=== PATIENT | male | born 1945 | race Caucasian/White ===

== ENCOUNTER 2016-08-04 23:18 | Emergency (ER) | payer MEDICARE ==
--- NOTE | 2016-08-04 23:38 | ERPHSYRPT ---
- History of Present Illness Time Seen by Provider: 08/04/16 23:32 Source: patient Exam Limitations: no limitations Patient Subjective Stated Complaint: fell out of bed earlier this morning - states that the skin tear on the left upper arm continues to bleed, after being seen at physical therapy - hx coumadin therapy Triage Nursing Assessment: ambulatory to treatment area - steady gait - moves all extremities with equal strength. alert/oriented - pleasant affect. skin pwd - with vertical skin tear 2inches in length with slow oozing. resps easy at reset - wears oxygen per movement et demonstrates exertion Physician History: Pt. fell out of bed at 6AM resulting in 2-3 cm lac to L upper arm. Pt. did not seek medical attention at that time, but noted more bleeding from area tonight after PT before coming to ED. Denies any other injuries. Timing/Duration: today Severity: mild Location: other (L Upper Arm) Associated Symptoms: denies symptoms Allergies/Adverse Reactions: Penicillins Allergy (Verified 08/04/16 23:27) Home Medications: Warfarin Sodium 2.5 mg PO WEEKLY 08/04/16 [History] Warfarin Sodium [Coumadin] 5 mg PO WEEKLY 08/04/16 [History] Hx Tetanus, Diphtheria Vaccination/Date Given: Yes Hx Influenza Vaccination/Date Given: Yes Hx Pneumococcal Vaccination/Date Given: Yes Immunizations Up to Date: Yes - Review of Systems Constitutional: No Fever, No Chills Eyes: No Symptoms Ears, Nose, & Throat: No Symptoms Respiratory: No Cough, No Dyspnea Cardiac: No Chest Pain, No Edema, No Syncope Abdominal/Gastrointestinal: No Abdominal Pain, No Nausea, No Vomiting, No Diarrhea Genitourinary Symptoms: No Dysuria Musculoskeletal: No Back Pain, No Neck Pain Skin: Other (Superficial lac to L upper arm), No Rash Neurological: No Dizziness, No Focal Weakness, No Sensory Changes Psychological: No Symptoms Endocrine: No Symptoms All Other Systems: Reviewed and Negative - Past Medical History Pertinent Past Medical History: Yes Cardiac History: Arrhythmia, High Cholesterol, Hypertension, Myocardial Infarction ([place]) Respiratory History: CHF, COPD Endocrine Medical History: Diabetes Type II - Past Surgical History Past Surgical History: Yes Cardiac: Cardiac Catheterization, Cardiac Stent - Social History Smoking Status: Never smoker Exposure to second hand smoke: No Drug Use: none Patient Lives Alone: No - Nursing Vital Signs Nursing Vital Signs: Initial Vital Signs Temperature 97.9 F Temperature Source Oral Pulse Rate 56 Respiratory Rate 16 Blood Pressure [Right Arm] 126/61 Pain Intensity 0 - Physical Exam General Appearance: no apparent distress, alert Eye Exam: PERRL/EOMI, eyes nml inspection Ears, Nose, Throat Exam: normal ENT inspection, pharynx normal, moist mucous membranes Neck Exam: normal inspection, non-tender, supple, full range of motion Respiratory Exam: normal breath sounds, lungs clear, No respiratory distress Cardiovascular Exam: regular rate/rhythm, normal heart sounds Gastrointestinal/Abdomen Exam: soft, mass, No tenderness Back Exam: normal inspection, normal range of motion, No CVA tenderness, No vertebral tenderness Extremity Exam: normal inspection, normal range of motion Neurologic Exam: alert, oriented x 3, cooperative, normal mood/affect, sensation nml, No motor deficits Skin Exam: normal color, warm, dry, other (Superficial lac 2cm to L upper arm area.) SpO2 Interpretation: normal SpO2: 96 Oxygen Delivery: Room Air - Course Nursing assessment & vital signs reviewed: Yes - Progress Progress: improved Progress Note: Surgicel/pressure dressing placed on L upper arm with good control of bleeding. 08/04/16 23:40 Counseled pt/family regarding: diagnosis - Departure Time of Disposition: 23:41 Departure Disposition: Home Clinical Impression: Laceration of right upper arm Condition: Stable Critical Care Time: No Instructions: Care for a Laceration Prior to Repair Additional Instructions: Keep pressure dressing on wound for 1-2 days Return for worse bleeding, swelling, redness, pus from area or any problems.
[2016-08-05 00:12] VITALS: BP 108/70; PULSE 68; O2SAT 92
== END 2016-08-05 00:10 | disposition home or self-care (01) ==
LOC: ED 23:18
DX: S41.112A Laceration without foreign body of left upper arm, initial encounter (principal); W06.XXXA Fall from bed, initial encounter; E78.00 Pure hypercholesterolemia, unspecified; I10 Essential (primary) hypertension; I25.2 Old myocardial infarction; J44.9 Chronic obstructive pulmonary disease, unspecified; E11.9 Type 2 diabetes mellitus without complications; I50.9 Heart failure, unspecified; Z98.61 Coronary angioplasty status; Z79.01 Long term (current) use of anticoagulants
CPT/HCPCS: 99283

== ENCOUNTER 2018-01-11 09:59 | Emergency (ER) | payer MEDICARE ==
--- NOTE | 2018-01-11 10:44 | ERPHSYRPT ---
- History of Present Illness Time Seen by Provider: 01/11/18 10:25 Source: patient Exam Limitations: no limitations Patient Subjective Stated Complaint: SOB and congestin tofay Triage Nursing Assessment: alert and oriented. came from cardiac rehab with c/ o decreased O2 sat in the 70s. has had congestion and cough. productive. + SOB denies CP denies swelling or fever Physician History: 72 y/o white male with h/o copd, chf, mi, cardiac stents, pacemaker in place on 2 liters nc at home when resting and 4 liters nc when out ambulating, presents with worsening soa over a couple of weeks. pt denies cp, denies abd pain but does states he doesnt feel bad but does think he is working to breathe. Timing/Duration: week(s) (a couple ) Activities at Onset: activity Severity of Dyspnea-Max: mild Severity of Dyspnea-Current: mild Possible Cause: occasional episodes Modifying Factors: Improves With: exertion, oxygen, rest Associated Symptoms: intermittent, No chest pain/discomfort, No loss of appetite , No hemoptysis, No lightheadedness Allergies/Adverse Reactions: Penicillins Allergy (Verified 08/04/16 23:27) Home Medications: Warfarin Sodium 2.5 mg PO WEEKLY 08/04/16 [History] Warfarin Sodium [Coumadin] 5 mg PO WEEKLY 08/04/16 [History] Hx Tetanus, Diphtheria Vaccination/Date Given: Yes Hx Influenza Vaccination/Date Given: Yes Hx Pneumococcal Vaccination/Date Given: Yes - Review of Systems Constitutional: No Symptoms Eyes: No Symptoms Ears, Nose, & Throat: No Symptoms Respiratory: Dyspnea, Wheezing, No Stridor Cardiac: No Symptoms, No Chest Pain, No Palpitations, No Syncope Abdominal/Gastrointestinal: No Symptoms, No Abdominal Pain, No Nausea, No Vomiting Genitourinary Symptoms: No Symptoms, No Dysuria, No Frequency, No Hematuria Musculoskeletal: No Symptoms Skin: No Symptoms Neurological: No Symptoms Psychological: No Symptoms Endocrine: No Symptoms Hematologic/Lymphatic: No Symptoms Immunological/Allergic: No Symptoms - Past Medical History Pertinent Past Medical History: Yes Neurological History: No Pertinent History ENT History: No Pertinent History Cardiac History: Arrhythmia, High Cholesterol, Hypertension, Myocardial Infarction ([place]) Respiratory History: CHF, COPD Endocrine Medical History: Diabetes Type II Musculoskeletal History: No Pertinent History GI Medical History: No Pertinent History History: No Pertinent History Psycho-Social History: No Pertinent History Male Reproductive Disorders: No Pertinent History - Past Surgical History Past Surgical History: Yes Cardiac: Cardiac Catheterization, Cardiac Stent Genitourinary: No Pertinent History Musculoskeletal: No Pertinent History Male Surgical History: No Pertinent History - Social History Smoking Status: Never smoker Exposure to second hand smoke: No Drug Use: none Patient Lives Alone: No - Nursing Vital Signs Nursing Vital Signs: Initial Vital Signs Temperature 98 F 01/11/18 10:07 Pulse Rate 66 01/11/18 10:07 Respiratory Rate 20 01/11/18 10:07 Blood Pressure 143/84 01/11/18 10:07 O2 Sat by Pulse Oximetry 95 01/11/18 10:07 Pain Scale Pain Intensity 0 - Physical Exam General Appearance: no apparent distress, alert, anxiety (mild) Eye Exam: PERRL/EOMI Ears, Nose, Throat Exam: hearing grossly normal Neck Exam: normal inspection, non-tender, supple, full range of motion Respiratory Exam: airway intact, wheezing (mild intermittent exp wheez), No chest tenderness, No respiratory distress, No accessory muscle use, No rhonchi, No stridor Cardiovascular/Chest Exam: normal heart sounds, regular rate/rhythm, normal peripheral pulses Abdominal/Gastrointestinal Exam: soft, normal bowel sounds, No tenderness, No guarding, No rebound Rectal Exam: not done Extremity Exam: non-tender, normal range of motion, normal inspection, normal capillary refill, swelling (mild bilat pedal and ankle edema) Neurologic Exam: alert, oriented x 3, cooperative, precision grinder II-XII nml as tested, normal mood/affect Skin Exam: normal color, warm, dry Lymphatic Exam: No adenopathy SpO2 Interpretation: normal SpO2: 95 Oxygen Delivery: Nasal Cannula - Course Nursing assessment & vital signs reviewed: Yes EKG Interpreted by Me: RATE (55), Other (ventricular pacemaker; no acute ischemic changes. ) Ordered Tests: Active Orders 24 hr Category Date Time Status Mult Au Matic Operator STAT Care 01/11/18 10:47 Active EKG-ER Only STAT Care 01/11/18 10:46 Active IV Insertion STAT Care 01/11/18 10:46 Active CHEST 1 VIEW (PORTABLE) Stat Exams 01/11/18 10:47 Completed CBC W DIFF Stat Lab 01/11/18 11:40 Completed CMP Stat Lab 01/11/18 11:40 Completed NT PRO BNP Stat Lab 01/11/18 11:40 Completed PROTIME WITH INR Stat Lab 01/11/18 11:40 Completed TROPONIN Q3H Lab 01/11/18 12:45 Completed TROPONIN Q3H Lab 01/11/18 15:45 Ordered TROPONIN Q3H Lab 01/11/18 18:45 Ordered TROPONIN Q3H Lab 01/11/18 21:45 Ordered Peak Expiratory Flow Rate ONCE RT 01/11/18 11:13 Active Respiratory Nebulizer STAT RT 01/11/18 11:06 Completed Respiratory Therapy Assessment DAILY RT 01/11/18 11:14 Active Medication Summary Discontinued Medications Generic Name Dose Route Start Last Admin Trade Name Freq PRN Reason Stop Dose Admin Albuterol/Ipratropium 3 ml 01/11/18 11:04 01/11/18 11:07 Duoneb 0.5-3 Mg/3 Ml Neb IH 01/11/18 11:05 3 ml STAT ONE Administration Albuterol/Ipratropium Confirm 01/11/18 11:07 Duoneb 0.5-3 Mg/3 Ml Neb Administered 01/11/18 11:08 Dose 3 ml IH .STK-MED ONE Furosemide 40 mg 01/11/18 11:29 01/11/18 11:33 Lasix 40 Mg/4 Ml IV 01/11/18 11:30 40 mg STAT ONE Administration Furosemide Confirm 01/11/18 11:32 Lasix 40 Mg/4 Ml Administered 01/11/18 11:33 Dose 40 mg .ROUTE .STK-MED ONE Methylprednisolone Sodium Succinate 125 mg 01/11/18 10:46 01/11/18 11:06 Solu-Medrol 125 Mg IV 01/11/18 10:47 125 mg STAT ONE Administration Methylprednisolone Sodium Succinate Confirm 01/11/18 11:06 Solu-Medrol 125 Mg Administered 01/11/18 11:07 Dose 125 mg .ROUTE .STK-MED ONE Lab/Rad Data: Laboratory Result Diagrams 01/11/18 11:40 01/11/18 11:40 Laboratory Results 01/11/18 01/11/18 01/11/18 Range/Units 12:45 11:40 11:40 WBC (4.0-10.5) K/mm3 RBC (4.1-5.6) M/mm3 Hgb (12.5-18.0) gm/dl Hct (42-50) % MCV (78-100) fl MCH (26-32) pg MCHC (32-36) g/dl RDW (11.5-14.0) % Plt Count (150-450) K/mm3 MPV (6-9.5) fl Gran % (36.0-66.0) % Eos # (Auto) (0-0.5) Absolute Lymphs (auto) (1.0-4.6) Absolute Monos (auto) (0.0-1.3) Lymphocytes % (24.0-44.0) % Monocytes % (0.0-12.0) % Eosinophils % (0.00-5.0) % Basophils % (0.0-0.4) % Absolute Granulocytes (1.4-6.9) Basophils # (0-0.4) PT 25.9 H (8.83-12.87) SECONDS INR 2.21 (0.8-3.0) Sodium 143 (137-145) mmol/L Potassium 4.5 (3.5-5.1) mmol/L Chloride 103 (98-107) mmol/L Carbon Dioxide 29 (22-30) mmol/L Anion Gap 15.4 H (5-15) MEQ/L BUN 18 (9-20) mg/dL Creatinine 0.81 (0.66-1.25) mg/dL Estimated GFR > 60.0 ML/MIN Glucose 97 (74-106) mg/dL Calcium 9.7 (8.4-10.2) mg/dL Total Bilirubin 1.30 (0.2-1.3) mg/dL AST 17 (17-59) U/L ALT 15 (0-50) U/L Alkaline Phosphatase 113 (38-126) U/L Troponin I < 0.012 (0.000-0.034) ng/mL NT-Pro-B Natriuret Pep 1260 H (0-900) pg/mL Serum Total Protein 7.9 (6.3-8.2) g/dL Albumin 4.5 (3.5-5.0) g/dL 01/11/18 Range/Units 11:40 WBC 6.3 (4.0-10.5) K/mm3 RBC 4.39 (4.1-5.6) M/mm3 Hgb 12.1 L (12.5-18.0) gm/dl Hct 39.4 L (42-50) % MCV 89.7 (78-100) fl MCH 27.5 (26-32) pg MCHC 30.7 L (32-36) g/dl RDW 15.2 H (11.5-14.0) % Plt Count 110 L (150-450) K/mm3 MPV 11.0 H (6-9.5) fl Gran % 67.1 H (36.0-66.0) % Eos # (Auto) 0.15 (0-0.5) Absolute Lymphs (auto) 0.99 L (1.0-4.6) Absolute Monos (auto) 0.88 (0.0-1.3) Lymphocytes % 15.8 L (24.0-44.0) % Monocytes % 14.1 H (0.0-12.0) % Eosinophils % 2.4 (0.00-5.0) % Basophils % 0.6 (0.0-0.4) % Absolute Granulocytes 4.19 (1.4-6.9) Basophils # 0.04 (0-0.4) PT (8.83-12.87) SECONDS INR (0.8-3.0) Sodium (137-145) mmol/L Potassium (3.5-5.1) mmol/L Chloride (98-107) mmol/L Carbon Dioxide (22-30) mmol/L Anion Gap (5-15) MEQ/L BUN (9-20) mg/dL Creatinine (0.66-1.25) mg/dL Estimated GFR ML/MIN Glucose (74-106) mg/dL Calcium (8.4-10.2) mg/dL Total Bilirubin (0.2-1.3) mg/dL AST (17-59) U/L ALT (0-50) U/L Alkaline Phosphatase (38-126) U/L Troponin I (0.000-0.034) ng/mL NT-Pro-B Natriuret Pep (0-900) pg/mL Serum Total Protein (6.3-8.2) g/dL Albumin (3.5-5.0) g/dL - Progress Progress: improved, re-examined Air Movement: good Progress Note: 01/11/18 12:28 pt states he is feeling much better. he states he has lasix and potassium. he only takes those when he thinks he needs them and he has not been taking them. 01/11/18 13:22 pt doing well. 01/11/18 13:23 cxr-increase fluid. no definite infiltrate but cannot r/o Blood Culture(s) Obtained: No Antibiotics given: No Counseled pt/family regarding: lab results, diagnosis, need for follow-up, rad results - Departure Time of Disposition: 13:23 Departure Disposition: Home Clinical Impression: CHF exacerbation Condition: Stable Critical Care Time: No Referrals: ALONDRA HERNANDEZ [Primary Care Provider] - Instructions: Heart Failure Additional Instructions: take your medications as prescribed. follow up with primary doctor for further management.
[2018-01-11] MEDS ORDERED: solu-MEDROL 125 MG IV ONE (10:46)
[2018-01-11] MEDS ORDERED: DUONEB 0.5-3 MG/3 ml Neb IH ONE ×2 (11:04→11:07)
[2018-01-11] MEDS ORDERED: solu-MEDROL 125 MG ONE (11:06)
--- NOTE | 2018-01-11 11:16 | XRAY ---
Indication: Short of breath. Comparison: September 19, 2016. Portable chest demonstrates new mild interstitial edema and small bibasilar effusions, right greater than left. Heart is borderline enlarged again with left-sided single lead pacemaker. 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 Bony thorax intact again with mild degenerative changes. Impression: 1. Borderline cardiomegaly with new small bibasilar effusions and interstitial edema. Rule out early/mild cardiac decompensation. Superimposed pneumonia not completely excluded. 2. 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
[2018-01-11] MEDS ORDERED: Lasix 40 MG/4 ML IV ONE (11:29)
[2018-01-11] MEDS ORDERED: Lasix 40 MG/4 ML ONE (11:32)
[2018-01-11 11:46] LABS: BASOPHIL % 0.6 % (0.0-0.4); Basophil (Absolute #) 0.04 (0-0.4); Eosinophil % 2.4 % (0.00-5.0); Eosinophil (Absolute #) 0.15 (0-0.5); Granulocyte Absolute (ANC) 4.19 (1.4-6.9); Granulocytes % 67.1 % (36.0-66.0); Hematocrit 39.4 % (42-50); Hemoglobin 12.1 gm/dl (12.5-18.0); Lymphocyte (Absolute #) 0.99 (1.0-4.6); Lymphocytes % 15.8 % (24.0-44.0); Mean Cell Volume 89.7 fl (78-100); Mean Corpuscular Hemoglobin 27.5 pg (26-32); Mean Corpuscular Hgb Concent. 30.7 g/dl (32-36); Monocyte (Absolute #) 0.88 (0.0-1.3); Monocytes % 14.1 % (0.0-12.0); Platelet Count 110 K/mm3 (150-450); Red Blood Count 4.39 M/mm3 (4.1-5.6); Red Cell Distribution Width 15.2 % (11.5-14.0); White Blood Count 6.3 K/mm3 (4.0-10.5)
[2018-01-11 12:19] LABS: INR 2.21 (0.8-3.0)
[2018-01-11 12:33] LABS: ALBUMIN 4.5 g/dL (3.5-5.0); ALKALINE PHOSPHATASE 113 U/L (38-126); ANION GAP 15.4 MEQ/L (5-15); BLOOD UREA NITROGEN 18 mg/dL (9-20); CHLORIDE 103 mmol/L (98-107); Calcium 9.7 mg/dL (8.4-10.2); Carbon Dioxide 29 mmol/L (22-30); Creatinine 1 0.81 mg/dL (0.66-1.25); Glucose 97 mg/dL (74-106); NT PRO BNP 1260 pg/mL (0-900); Potassium 4.5 mmol/L (3.5-5.1); SGOT/AST 17 U/L (17-59); SGPT/ALT 15 U/L (0-50); SODIUM 143 mmol/L (137-145); Total Protein 7.9 g/dL (6.3-8.2)
[2018-01-11 13:49] VITALS: BP 135/72; PULSE 75; O2SAT 91
== END 2018-01-11 13:51 | disposition home or self-care (01) ==
LOC: ED 09:59
DX: I50.9 Heart failure, unspecified (principal); Z79.01 Long term (current) use of anticoagulants; Z95.0 Presence of cardiac pacemaker
CPT/HCPCS: 36000; 36415; 71045; 80053; 83880; 84484; 85025; 85610; 93005; 93041; 94150; 94640; 96374; 96375; 99284; J1940; J2930; A9270-GY

== ENCOUNTER 2021-05-03 11:02 | Observation (INO) | payer MEDICARE ==
[2021-05-03 11:41] LABS: Absolute Neutrophil Ct (ANC) 7.89 (1.4-6.9); Basophil (Absolute #) 0.03 (0-0.4); Eosinophil % 1.5 % (0.00-5.0); Eosinophil (Absolute #) 0.15 (0-0.5); Hematocrit 37.6 % (42-50); Hemoglobin 11.6 gm/dl (12.5-18.0); Lymphocyte (Absolute #) 1.17 (1.0-4.6); Lymphocytes % 11.3 % (24.0-44.0); Mean Cell Volume 92.6 fl (78-100); Mean Corpuscular Hemoglobin 28.6 pg (26-32); Mean Corpuscular Hgb Concent. 30.9 g/dl (32-36); Mean Platelet Volume 10.1 fl (7.5-11.0); Monocytes % 10.6 % (0.0-12.0); Neutrophil % 76.3 % (36.0-66.0); Platelet Count 123 K/mm3 (150-450); Red Blood Count 4.06 M/mm3 (4.1-5.6); White Blood Count 10.3 K/mm3 (4.0-10.5)
[2021-05-03] MEDS ORDERED: Sodium Chloride 0.9% 1000 ML 1,000 ML IV SCH (11:45)
[2021-05-03 11:48] LABS: ALBUMIN 4.4 g/dL (3.5-5.0); ANION GAP 17.2 MEQ/L (5-15); BILIRUBIN,TOTAL 1.1 mg/dL (0.2-1.3); Calcium 8.9 mg/dL (8.4-10.2); Creatinine 1 2.37 mg/dL (0.66-1.25); EST GLOMERULAR FILTRATION RATE 28.4 ML/MIN; Potassium 4.2 mmol/L (3.5-5.1); Total Protein 8.1 g/dL (6.3-8.2)
[2021-05-03] MEDS ORDERED: Sodium Chloride 0.9% 1000 ML 1,000 ML ONE (11:58)
--- NOTE | 2021-05-03 12:03 | XRAY ---
Indication: Severe dizziness. Multiple contiguous axial images obtained through the head without contrast. Comparison: None Age-appropriate global atrophy and minimal periventricular degenerative micro-ischemia bilaterally. No acute intracranial hemorrhage, abnormal extra-axial fluid collection, or mass effect. Fourth ventricle is midline without hydrocephalus. Bony calvarium intact. Mild mucosal thickening inferior maxillary sinuses right greater than left. Remaining paranasal sinuses and mastoid air cells are clear. Impression: Nonacute senile brain. Mild paranasal sinus disease.
--- NOTE | 2021-05-03 13:03 | ERPHSYRPT ---
- History of Present Illness Time Seen by Provider: 05/03/21 11:20 Source: patient Exam Limitations: no limitations Patient Subjective Stated Complaint: Pt c/o of rj ear drainage and left ear pain and dizziness Triage Nursing Assessment: Pt brought to the ER by his , vitals wnl but does tend to be bradycardic, denies pain, denies N&V, has pain in left ear but not at this time, dizzy when he moves his head from side to side, pulses normal, skin n/w/d, doesn't appear to be in any distress Physician History: Patient is a 76-year-old male presents to emergency department with complaints of dizziness. Patient is a dizziness occurs when he moves his head only. Dizziness resolves at rest. Patient also experiencing bilateral ear drainage. Patient's left ear is achy. Symptoms have been ongoing for at least 3 to 4 days but significantly worse over the past day. Symptoms are constant. No associated fever. No trauma. No nausea or vomiting. No diarrhea. No rash. Symptoms are moderate in intensity. Patient voices no other complaints or concerns at this time. Timing/Duration: today Severity: moderate Modifying Factors: Improves With: nothing Associated Symptoms: No nausea, No vomiting, No shortness of breath, No diaphoresis, No chest pain, No fever, No loss of appetite, No syncope, No seizure, No weakness Allergies/Adverse Reactions: Penicillins Allergy (Verified 05/03/21 11:20) Home Medications: Albuterol Sulfate [Proair Hfa] 8.5 gm IH QIDPRN PRN 09/23/19 [History] Alendronate Sodium 70 mg [Fosamax 70 MG] 35 mg PO WEEKLY 09/23/19 [History] Apixaban [Eliquis] 5 mg PO BID 09/23/19 [History] Aspirin 81 mg PO DAILY 09/23/19 [History] Atorvastatin Calcium [Lipitor] 40 mg PO HS 09/23/19 [History] Bumetanide [Bumex] 2 mg PO BID 09/23/19 [History] Digoxin 0.125 mg Tablet [Lanoxin 0.125MG TABLET] 0.125 mg PO DAILY 09/23/19 [History] Famotidine [Pepcid] 20 mg PO DAILY 09/23/19 [History] Finasteride 5 mg [Proscar 5 MG] 5 mg PO DAILY 09/23/19 [History] Glipizide [Glipizide ER] 5 mg PO DAILY 09/23/19 [History] Metoprolol Tartrate 25 mg PO BID 09/23/19 [History] Potassium Chloride 10 meq PO BID 09/23/19 [History] Tamsulosin HCl 0.4 mg [Flomax 0.4 MG] 0.4 mg PO DAILY 09/23/19 [History] Tiotropium [place] [Spiriva Respimat] 2 puffs IH DAILY 09/23/19 [History] Allopurinol 100 mg [Zyloprim 100 mg] 100 mg PO DAILY 05/03/21 [History] Dapagliflozin Propanediol [Farxiga] 5 mg PO DAILY 05/03/21 [History] Levothyroxine Sodium 50 mcg PO DAILY 05/03/21 [History] Nitroglycerin 0.4 mg/Hr [Nitro-Dur 0.4 MG/HR] 0.4 mg TD DAILY 05/03/21 [History] Hx Tetanus, Diphtheria Vaccination/Date Given: Yes Hx Influenza Vaccination/Date Given: Yes Hx Pneumococcal Vaccination/Date Given: Yes Travel Risk - International Travel Have you traveled outside of the country in past 3 weeks: No - Coronavirus Screening Are you exhibiting any of the following symptoms?: No Close contact with a COVID-19 positive Pt in past 14-21 Days: No - Vaccine Status Have you recieved a Covid-19 vaccination: Yes [employer]: [id number] - Vaccination Dates Date of 2cond Vaccination (if applicable): 05/2020 - Review of Systems Constitutional: No Symptoms, No Fever, No Chills Eyes: No Symptoms Ears, Nose, & Throat: No Symptoms Respiratory: No Symptoms, No Cough, No Dyspnea Cardiac: No Symptoms, No Chest Pain, No Edema, No Syncope Abdominal/Gastrointestinal: No Symptoms, Appetite Changes, No Abdominal Pain, No Nausea, No Vomiting, No Diarrhea Genitourinary Symptoms: No Dysuria Musculoskeletal: No Symptoms, No Back Pain, No Neck Pain Skin: No Symptoms, No Rash Neurological: No Symptoms, No Dizziness, No Focal Weakness, No Sensory Changes Psychological: No Symptoms Endocrine: No Symptoms Hematologic/Lymphatic: No Symptoms Immunological/Allergic: No Symptoms All Other Systems: Reviewed and Negative - Past Medical History Pertinent Past Medical History: Yes Neurological History: Stroke ENT History: No Pertinent History Cardiac History: Arrhythmia, Congenital Heart Disease, Hypertension Respiratory History: COPD, Other Endocrine Medical History: Diabetes Type II Musculoskeletal History: Arthritis GI Medical History: GERD, Ulcer History: Renal Disease Psycho-Social History: No Pertinent History Male Reproductive Disorders: Prostate Problems Other Medical History: Uses CPAP at night but denies sleep apnea - Past Surgical History Past Surgical History: Yes Neuro Surgical History: No Pertinent History Cardiac: Cardiac Catheterization, Cardiac Stent, Pacemaker Respiratory: No Pertinent History Gastrointestinal: Appendectomy Genitourinary: No Pertinent History Musculoskeletal: Orthopedic Surgery Male Surgical History: No Pertinent History Other Surgical History: Fractured pelvis with surgery in 1972. - Social History Smoking Status: Former smoker Exposure to second hand smoke: No Drug Use: none Patient Lives Alone: No - Nursing Vital Signs Nursing Vital Signs: Initial Vital Signs Temperature 98.9 F 05/03/21 11:10 Pulse Rate 62 05/03/21 11:10 Blood Pressure 135/55 05/03/21 11:10 O2 Sat by Pulse Oximetry 100 05/03/21 11:10 Pain Scale Pain Intensity 0 - Physical Exam General Appearance: no apparent distress, alert Eye Exam: PERRL/EOMI, eyes nml inspection Ears, Nose, Throat Exam: normal ENT inspection, pharynx normal, moist mucous membranes, other (Both ears have impacted cerumen. Unable to visualize TM ears irrigated by computer forensics technician. No obvious infection observed.) Neck Exam: normal inspection, non-tender, supple, full range of motion Respiratory Exam: normal breath sounds, lungs clear, No respiratory distress Cardiovascular Exam: regular rate/rhythm, normal heart sounds, normal peripheral pulses Gastrointestinal/Abdomen Exam: soft, normal bowel sounds, No tenderness, No mass Back Exam: normal inspection, normal range of motion, No CVA tenderness, No vertebral tenderness Extremity Exam: normal inspection, normal range of motion, pelvis stable Neurologic Exam: alert, oriented x 3, cooperative, normal mood/affect, sensation nml, No motor deficits, No intoxicated appearance, No abnormal acid pumper II-XII Skin Exam: normal color, warm, dry, No rash Lymphatic Exam: No adenopathy SpO2 Interpretation: normal SpO2: 99 O2 Delivery: Room Air - Course Nursing assessment & vital signs reviewed: Yes EKG Interpreted by Me: RATE (50, paced rhythm) - CT Exams Head CT Interpretation: Tele-radiologist Report (Nonacute senile brain. Mild paranasal sinus disease. Appropriate global atrophy and minimal periventricular degenerative microischemia bilaterally. Mild mucosal thickening inferior maxillary sinuses right greater than left.) Ordered Tests: Active Orders 24 hr Category Date Time Status EKG-ER Only STAT Care 05/03/21 11:39 Active Ear Irrigation STAT Care 05/03/21 13:28 Active IV Insertion STAT Care 05/03/21 11:36 Active Oxygen-ED Only Nasal Cannula 2 lpm Care 05/03/21 11:44 Active Pulse Oximetry (ED) STAT Care 05/03/21 11:36 Active HEAD WITHOUT CONTRAST [CT] Stat Exams 05/03/21 11:38 Completed CBC W DIFF Stat Lab 05/03/21 11:30 Completed CMP Stat Lab 05/03/21 11:36 Completed CMP Stat Lab 05/03/21 14:29 Received MAGNESIUM Stat Lab 05/03/21 11:30 Completed TROPONIN Q3H Lab 05/03/21 11:30 Completed TROPONIN Q3H Lab 05/03/21 14:28 Completed TROPONIN Q3H Lab 05/03/21 17:45 Ordered TROPONIN Q3H Lab 05/03/21 20:45 Ordered TROPONIN Q3H Lab 05/03/21 23:45 Ordered TSH [TSH, 3RD Generation] Stat Lab 05/03/21 11:30 Completed Medication Summary Generic Name Dose Route Start Last Admin Trade Name Freq PRN Reason Stop Dose Admin Sodium Chloride 1,000 mls @ 100 mls/hr 05/03/21 11:45 05/03/21 12:01 Sodium Chloride 0.9% 1000 Ml IV 06/02/21 11:44 100 mls/hr .Q10H ARIADNA Administration Discontinued Medications Generic Name Dose Route Start Last Admin Trade Name Freq PRN Reason Stop Dose Admin Hydrogen Peroxide Confirm 05/03/21 13:12 Hydrogen Peroxide 237 Ml Solution Administered 05/03/21 13:13 Dose 237 ml .ROUTE .STK-MED ONE Hydrogen Peroxide 50 ml 05/03/21 13:29 05/03/21 13:30 Hydrogen Peroxide 237 Ml Solution TOP 05/03/21 13:30 50 ml STAT ONE Administration Meclizine HCl 25 mg 05/03/21 13:29 05/03/21 13:31 Meclizine Hcl 25 Mg Tablet PO 05/03/21 13:30 25 mg STAT ONE Administration Meclizine HCl Confirm 05/03/21 13:30 Meclizine Hcl 25 Mg Tablet Administered 05/03/21 13:31 Dose 25 mg .ROUTE .STK-MED ONE Lab/Rad Data: Laboratory Result Diagrams 05/03/21 11:30 05/03/21 11:36 Laboratory Results 05/03/21 05/03/21 05/03/21 Range/Units 16:44 14:28 12:00 WBC (4.0-10.5) K/mm3 RBC (4.1-5.6) M/mm3 Hgb (12.5-18.0) gm/dl Hct (42-50) % MCV (78-100) fl MCH (26-32) pg MCHC (32-36) g/dl RDW (11.5-14.0) % Plt Count (150-450) K/mm3 MPV (7.5-11.0) fl Gran % (36.0-66.0) % Eos # (Auto) (0-0.5) Absolute Lymphs (auto) (1.0-4.6) Absolute Monos (auto) (0.0-1.3) Lymphocytes % (24.0-44.0) % Monocytes % (0.0-12.0) % Eosinophils % (0.00-5.0) % Basophils % (0.0-0.4) % Absolute Granulocytes (1.4-6.9) Basophils # (0-0.4) Sodium (137-145) mmol/L Potassium (3.5-5.1) mmol/L Chloride (98-107) mmol/L Carbon Dioxide (22-30) mmol/L Anion Gap (5-15) MEQ/L BUN (9-20) mg/dL Creatinine (0.66-1.25) mg/dL Estimated GFR ML/MIN Glucose (74-106) mg/dL Calcium (8.4-10.2) mg/dL Magnesium (1.6-2.3) mg/dL Total Bilirubin (0.2-1.3) mg/dL AST (17-59) U/L ALT (0-50) U/L Alkaline Phosphatase (38-126) U/L Troponin I 0.024 (0.000-0.034) ng/mL Serum Total Protein (6.3-8.2) g/dL Albumin (3.5-5.0) g/dL TSH 3rd Generation (0.47-4.68) mIU/L Digoxin 1.8 (0.8-1.9) ng/mL Influenza Type A Ag NEGATIVE (NEGATIVE) Influenza Type B Ag NEGATIVE (NEGATIVE) RSV (PCR) NEGATIVE (Negative) SARS-CoV-2 (PCR) NEGATIVE (NEGATIVE) 05/03/21 05/03/21 05/03/21 Range/Units 11:36 11:30 11:30 WBC (4.0-10.5) K/mm3 RBC (4.1-5.6) M/mm3 Hgb (12.5-18.0) gm/dl Hct (42-50) % MCV (78-100) fl MCH (26-32) pg MCHC (32-36) g/dl RDW (11.5-14.0) % Plt Count (150-450) K/mm3 MPV (7.5-11.0) fl Gran % (36.0-66.0) % Eos # (Auto) (0-0.5) Absolute Lymphs (auto) (1.0-4.6) Absolute Monos (auto) (0.0-1.3) Lymphocytes % (24.0-44.0) % Monocytes % (0.0-12.0) % Eosinophils % (0.00-5.0) % Basophils % (0.0-0.4) % Absolute Granulocytes (1.4-6.9) Basophils # (0-0.4) Sodium 142 (137-145) mmol/L Potassium 4.2 (3.5-5.1) mmol/L Chloride 98 (98-107) mmol/L Carbon Dioxide 31 H (22-30) mmol/L Anion Gap 17.2 H (5-15) MEQ/L BUN 46 H (9-20) mg/dL Creatinine 2.37 H (0.66-1.25) mg/dL Estimated GFR 28.4 ML/MIN Glucose 121 H (74-106) mg/dL Calcium 8.9 (8.4-10.2) mg/dL Magnesium 2.5 H (1.6-2.3) mg/dL Total Bilirubin 1.10 (0.2-1.3) mg/dL AST 25 (17-59) U/L ALT 18 (0-50) U/L Alkaline Phosphatase 153 H (38-126) U/L Troponin I 0.022 (0.000-0.034) ng/mL Serum Total Protein 8.1 (6.3-8.2) g/dL Albumin 4.4 (3.5-5.0) g/dL TSH 3rd Generation (0.47-4.68) mIU/L Digoxin (0.8-1.9) ng/mL Influenza Type A Ag (NEGATIVE) Influenza Type B Ag (NEGATIVE) RSV (PCR) (Negative) SARS-CoV-2 (PCR) (NEGATIVE) 05/03/21 05/03/21 Range/Units 11:30 11:30 WBC 10.3 (4.0-10.5) K/mm3 RBC 4.06 L (4.1-5.6) M/mm3 Hgb 11.6 L (12.5-18.0) gm/dl Hct 37.6 L (42-50) % MCV 92.6 (78-100) fl MCH 28.6 (26-32) pg MCHC 30.9 L (32-36) g/dl RDW 14.0 (11.5-14.0) % Plt Count 123 L (150-450) K/mm3 MPV 10.1 (7.5-11.0) fl Gran % 76.3 H (36.0-66.0) % Eos # (Auto) 0.15 (0-0.5) Absolute Lymphs (auto) 1.17 (1.0-4.6) Absolute Monos (auto) 1.10 (0.0-1.3) Lymphocytes % 11.3 L (24.0-44.0) % Monocytes % 10.6 (0.0-12.0) % Eosinophils % 1.5 (0.00-5.0) % Basophils % 0.3 (0.0-0.4) % Absolute Granulocytes 7.89 H (1.4-6.9) Basophils # 0.03 (0-0.4) Sodium (137-145) mmol/L Potassium (3.5-5.1) mmol/L Chloride (98-107) mmol/L Carbon Dioxide (22-30) mmol/L Anion Gap (5-15) MEQ/L BUN (9-20) mg/dL Creatinine (0.66-1.25) mg/dL Estimated GFR ML/MIN Glucose (74-106) mg/dL Calcium (8.4-10.2) mg/dL Magnesium (1.6-2.3) mg/dL Total Bilirubin (0.2-1.3) mg/dL AST (17-59) U/L ALT (0-50) U/L Alkaline Phosphatase (38-126) U/L Troponin I (0.000-0.034) ng/mL Serum Total Protein (6.3-8.2) g/dL Albumin (3.5-5.0) g/dL TSH 3rd Generation 2.830 (0.47-4.68) mIU/L Digoxin (0.8-1.9) ng/mL Influenza Type A Ag (NEGATIVE) Influenza Type B Ag (NEGATIVE) RSV (PCR) (Negative) SARS-CoV-2 (PCR) (NEGATIVE) - Progress Progress: improved Progress Note: Case discussed with Dr. Keller who accepts admission to observation. We will obtain a neuro consult before patient gets to the floor. Patient's troponin is slowly trending upward. We will continue to monitor troponin levels throughout patient's stay. Patient's dizziness improved with meclizine but did not resolve. Patient feels dizzy and is a fall risk. Covid test pending 05/03/21 16:30 Discussed case with teleneuro. Teleneuro feels patient's problem is BPPV. However due to risk factors telemetry neuro advises MRI MRA of head neck in the morning. They also advise a ROSARIO. Patient to continue Eliquis and aspirin. 05/03/21 17:33 Discussed with : Pio Will see patient in: hospital (observation) Counseled pt/family regarding: lab results, diagnosis, rad results - Departure Departure Disposition: Home Clinical Impression: Chronic normocytic anemia, Thrombocytopenia, Chronic renal insufficiency, High anion gap metabolic acidosis, Vertigo, Dizziness, BPPV (benign paroxysmal positional vertigo), Bradycardia Condition: Stable Critical Care Time: No
[2021-05-03] MEDS ORDERED: PEROXIDE 3% ONE (13:12)
[2021-05-03] MEDS ORDERED: ANTIVERT 25 MG PO ONE (13:29)
[2021-05-03] MEDS ORDERED: PEROXIDE 3% TOP ONE (13:29)
[2021-05-03] MEDS ORDERED: ANTIVERT 25 MG ONE (13:30)
[2021-05-03 17:26] LABS: INFLUENZA A NEGATIVE (NEGATIVE); INFLUENZA B NEGATIVE (NEGATIVE); RESPIRATORY SYNCTIAL VIRUS NEGATIVE (Negative); SARS-CoV-2 Xpert Express NEGATIVE (NEGATIVE)
[2021-05-03] MEDS ORDERED: TYLENOL 325 MG PO PRN (18:00)
[2021-05-03] MEDS ORDERED: MILK OF MAGNESIA 30 ML PO PRN (18:00)
[2021-05-03] MEDS ORDERED: ANTIVERT 25 MG PO PRN (18:00)
[2021-05-03] MEDS ORDERED: MAALOX ES 30 ML UNIT DOSE PO PRN (18:00)
[2021-05-03] MEDS ORDERED: Senokot-S Tablet PO PRN (18:00)
[2021-05-03] MEDS ORDERED: Zofran 4 MG/2 ML VIAL IV PRN (18:00)
[2021-05-03 21:05] LABS: ALBUMIN 4.3 g/dL (3.5-5.0); ANION GAP 16.1 MEQ/L (5-15); BILIRUBIN,TOTAL 1.1 mg/dL (0.2-1.3); Calcium 8.9 mg/dL (8.4-10.2); Creatinine 1 2.39 mg/dL (0.66-1.25); EST GLOMERULAR FILTRATION RATE 28.1 ML/MIN
[2021-05-03] MEDS ORDERED: Ear Wax Drops OT SCH (22:00)
[2021-05-03] MEDS ORDERED: Lopressor 25MG Tab PO ONE (22:00)
[2021-05-03] MEDS ORDERED: ZOCOR 20MG PO ONE (22:00)
[2021-05-03] MEDS ORDERED: ELIQUIS 2.5 MG TABLET PO ONE (22:00)
[2021-05-04 06:12] LABS: Cholesterol 74 mg/dL (50-200); HDL CHOLESTEROL 19 mg/dL (40-60); LDL, DIRECT < 36 mg/dL (30-100); Risk Ratio 3.9; TRIGLYCERIDE 100 mg/dL (30-150)
[2021-05-04] MEDS ORDERED: Spiriva 18 Mcg/Cap Inhaler IH ONE (06:32)
[2021-05-04] MEDS ORDERED: Ventolin Hfa MDI IH PRN (07:27)
[2021-05-04] MEDS ORDERED: VENTOLIN COMMON CANISTER IH PRN (07:38)
[2021-05-04] MEDS ORDERED: Spiriva 18 Mcg/Cap Inhaler IH SCH (10:00)
[2021-05-04] MEDS ORDERED: Nitro-Dur 0.4 MG/HR TD SCH (10:00)
[2021-05-04] MEDS ORDERED: ZYLOPRIM 100 MG PO SCH (10:00)
[2021-05-04] MEDS ORDERED: Flomax 0.4 MG PO SCH (10:00)
[2021-05-04] MEDS ORDERED: NON-FORMULARY ITEM (Apixaban [Eliquis] 5 MG Tablet) PO SCH (10:00)
[2021-05-04] MEDS ORDERED: Ear Wax Drops OT SCH (10:00)
[2021-05-04] MEDS ORDERED: Proscar 5 MG PO SCH (10:00)
[2021-05-04] MEDS ORDERED: Lanoxin 0.125MG TABLET PO SCH (10:00)
[2021-05-04] MEDS ORDERED: SYNTHROID 50 MCG PO SCH (10:00)
[2021-05-04] MEDS ORDERED: Pepcid 20 MG PO SCH ×2 (10:00→22:00)
[2021-05-04] MEDS ORDERED: NON-FORMULARY ITEM (Famotidine [Pepcid] 40 MG Tablet) PO SCH (10:00)
[2021-05-04] MEDS ORDERED: ECOTRIN 81 MG PO SCH ×2 (10:00→22:00)
[2021-05-04] MEDS ORDERED: Lopressor 25MG Tab PO SCH (10:00)
[2021-05-04] MEDS ORDERED: ELIQUIS 2.5 MG TABLET PO SCH (10:00)
[2021-05-04 11:52] VITALS: BP 129/61; PULSE 49; O2SAT 93
--- NOTE | 2021-05-04 12:32 | PCM.SSS ---
History of Present Illness - Chief Complaint Chief Complaint: BPPV, dizziness History of Present Illness: is a 76 year old male pt of Dr. Montes who came to ER c/o Vertigo. He had had trouble with his ears running white material and feeling plugged, with decreased hearing L>R. For 2 weeks he had dizziness when waking, and yesterday it was much worse when he woke up. Describes as spinning. [facility], and she was going to call 911 but pt had his bring him to ER. Vertigo was worse with sitting down/getting up. Had some N, no vomiting. Some diarrhea, which resolved. Pt is now feeling fine. No dizziness. Anika po - had a tenderloin sandwich last night. - Review of Systems Respiratory: Cough (chronic) Cardiac: Edema (has worn SAMARIA hose for the past 2 years) Abdominal/Gastrointestinal: Nausea Neurological: Dizziness All Other Systems: Reviewed and Negative Medications & Allergies Home Medications: Home Medication List Albuterol Sulfate [Proair Hfa] 8.5 gm IH QIDPRN PRN 09/23/19 [History Confirmed 05/03/21] Alendronate Sodium 70 mg [Fosamax 70 MG] 35 mg PO WEEKLY 09/23/19 [History Confirmed 05/03/21] Apixaban [Eliquis] 5 mg PO BID 09/23/19 [History Confirmed 05/03/21] Aspirin 81 mg PO HS 09/23/19 [History Confirmed 05/04/21] Atorvastatin Calcium [Lipitor] 40 mg PO HS 09/23/19 [History Confirmed 05/03/21] Bumetanide [Bumex] 2 mg PO BID 09/23/19 [History Confirmed 05/03/21] Digoxin 0.125 mg Tablet [Lanoxin 0.125MG TABLET] 0.125 mg PO DAILY 09/23/19 [History Confirmed 05/03/21] Famotidine [Pepcid] 20 mg PO HS 09/23/19 [History Confirmed 05/04/21] Finasteride 5 mg [Proscar 5 MG] 5 mg PO DAILY 09/23/19 [History Confirmed 05/03/21] Glipizide [Glipizide ER] 5 mg PO DAILY 09/23/19 [History Confirmed 05/03/21] Metoprolol Tartrate 25 mg PO BID 09/23/19 [History Confirmed 05/03/21] Potassium Chloride 10 meq PO BID 09/23/19 [History Confirmed 05/03/21] Tamsulosin HCl 0.4 mg [Flomax 0.4 MG] 0.4 mg PO DAILY 09/23/19 [History Confirmed 05/03/21] Tiotropium [place] [Spiriva Respimat] 2 puffs IH DAILY 09/23/19 [History Confirmed 05/03/21] Allopurinol 100 mg [Zyloprim 100 mg] 100 mg PO DAILY 05/03/21 [History Confirmed 05/03/21] Dapagliflozin Propanediol [Farxiga] 5 mg PO DAILY 05/03/21 [History Confirmed 05/03/21] Levothyroxine Sodium 50 mcg PO DAILY 05/03/21 [History Confirmed 05/03/21] Nitroglycerin 0.4 mg/Hr [Nitro-Dur 0.4 MG/HR] 0.4 mg TD DAILY 05/03/21 [History Confirmed 05/03/21] Carbamide Peroxide [Ear Wax Drops] 1 drop OT BID 14 Days #1 unit 05/04/21 [Rx] Meclizine HCl 25 mg [Antivert 25 mg] 25 mg PO Q6H PRN PRN #30 tablet 05/04/21 [Rx] Allergies/Adverse Reactions: Allergies Allergy/AdvReac Type Severity Reaction Status Date / Time Penicillins Allergy Verified 05/03/21 11:20 - Past Medical History Past Medical History: Yes Neurological History: Stroke ENT History: No Pertinent History Cardiac History: Arrhythmia, Congenital Heart Disease, Hypertension Respiratory History: COPD, Other Endocrine Medical History: Diabetes Type II Musculoskelatal History: Arthritis GI Medical History: GERD, Ulcer History: Renal Disease Pyscho-Social History: No Pertinent History Male Reproductive Disorders: Prostate Problems Comment: Uses CPAP at night but denies sleep apnea - Past Surgical History Past Surgical History: Yes Neuro Surgical History: No Pertinent History Cardiac History: Cardiac Catheterization, Cardiac Stent, Pacemaker Respiratory Surgery: No Pertinent History GI Surgical History: Appendectomy Genitourinary Surgical Hx: No Pertinent History Musculskeletal Surgical Hx: Orthopedic Surgery Male Surgical History: No Pertinent History Other Surgical History: Fractured pelvis with surgery in 1972. - Social History Smoking Status: Former smoker How long have you smoked: 40 Exposure to second hand smoke: No Alcohol: None Drug Use: none - Physical Exam Vital Signs: Vital Signs - 24 hr Temp Pulse Resp BP Pulse Ox 05/04/21 11:52 98.6 F 49 L 18 129/61 93 L 05/04/21 09:21 50 L 05/04/21 07:27 98.6 F 50 L 18 122/60 97 05/04/21 07:16 60 16 95 05/04/21 04:00 97.6 F 50 L 18 106/50 96 05/03/21 23:29 98.7 F 50 L 17 92/43 94 L 05/03/21 19:47 97.9 F 52 L 16 100/52 96 05/03/21 19:27 52 L 16 96 05/03/21 18:52 97.9 F 59 L 19 100/52 97 05/03/21 18:12 98.9 F 50 L 104/62 99 05/03/21 17:57 99 05/03/21 17:00 50 L 18 104/62 99 05/03/21 16:00 50 L 18 110/54 99 05/03/21 15:00 50 L 18 109/53 99 05/03/21 14:54 50 L 18 105/60 98 05/03/21 14:00 50 L 18 122/58 99 05/03/21 13:00 50 L 16 127/74 99 General Appearance: no apparent distress, alert Neurologic Exam: oriented x 3, cooperative, other (CN II-XII intact (aside from CN VIII which is decreased bilat)) Eye Exam: PERRL/EOMI, eyes nml inspection Ears, Nose, Throat Exam: pharynx normal, moist mucous membranes, other (L TM obscured by wax. R canal with wax present, difficult as well to see TM), No pharyngeal erythema Neck Exam: normal inspection Respiratory Exam: normal breath sounds, lungs clear, No crackles/rales, No rhonchi, No wheezing Cardiovascular Exam: regular rate/rhythm, normal heart sounds, No murmur Gastrointestinal/Abdomen Exam: soft, normal bowel sounds, No tenderness, No distention, No mass, No guarding, No rebound Extremity Exam: normal inspection, No pedal edema, No swelling Skin Exam: normal color, warm, dry, No rash Results - Labs Lab/Micro Results: Lab Results-Last 24 Hours 05/03/21 05/03/21 05/03/21 Range/Units 11:30 12:00 14:28 Sodium (137-145) mmol/L Potassium (3.5-5.1) mmol/L Chloride (98-107) mmol/L Carbon Dioxide (22-30) mmol/L Anion Gap (5-15) MEQ/L BUN (9-20) mg/dL Creatinine (0.66-1.25) mg/dL Estimated GFR ML/MIN Glucose (74-106) mg/dL POC Glucometer (74 to 106) mg/dL Calcium (8.4-10.2) mg/dL Total Bilirubin (0.2-1.3) mg/dL AST (17-59) U/L ALT (0-50) U/L Alkaline Phosphatase (38-126) U/L Troponin I 0.024 (0.000-0.034) ng/mL Serum Total Protein (6.3-8.2) g/dL Albumin (3.5-5.0) g/dL Triglycerides (30-150) mg/dL Cholesterol (50-200) mg/dL LDL Cholesterol (30-100) mg/dL HDL Cholesterol (40-60) mg/dL Heart Disease Risk Ratio TSH 3rd Generation 2.830 (0.47-4.68) mIU/L Digoxin 1.8 (0.8-1.9) ng/mL Influenza Type A Ag (NEGATIVE) Influenza Type B Ag (NEGATIVE) RSV (PCR) (Negative) SARS-CoV-2 (PCR) (NEGATIVE) 05/03/21 05/03/21 05/03/21 Range/Units 14:29 16:44 18:09 Sodium 142 (137-145) mmol/L Potassium 4.0 (3.5-5.1) mmol/L Chloride 98 (98-107) mmol/L Carbon Dioxide 31 H (22-30) mmol/L Anion Gap 16.1 H (5-15) MEQ/L BUN 43 H (9-20) mg/dL Creatinine 2.39 H (0.66-1.25) mg/dL Estimated GFR 28.1 ML/MIN Glucose 104 (74-106) mg/dL POC Glucometer (74 to 106) mg/dL Calcium 8.9 (8.4-10.2) mg/dL Total Bilirubin 1.10 (0.2-1.3) mg/dL AST 25 (17-59) U/L ALT 19 (0-50) U/L Alkaline Phosphatase 152 H (38-126) U/L Troponin I 0.023 (0.000-0.034) ng/mL Serum Total Protein 8.0 (6.3-8.2) g/dL Albumin 4.3 (3.5-5.0) g/dL Triglycerides (30-150) mg/dL Cholesterol (50-200) mg/dL LDL Cholesterol (30-100) mg/dL HDL Cholesterol (40-60) mg/dL Heart Disease Risk Ratio TSH 3rd Generation (0.47-4.68) mIU/L Digoxin (0.8-1.9) ng/mL Influenza Type A Ag NEGATIVE (NEGATIVE) Influenza Type B Ag NEGATIVE (NEGATIVE) RSV (PCR) NEGATIVE (Negative) SARS-CoV-2 (PCR) NEGATIVE (NEGATIVE) 05/03/21 05/03/21 05/03/21 Range/Units 20:51 21:30 23:40 Sodium (137-145) mmol/L Potassium (3.5-5.1) mmol/L Chloride (98-107) mmol/L Carbon Dioxide (22-30) mmol/L Anion Gap (5-15) MEQ/L BUN (9-20) mg/dL Creatinine (0.66-1.25) mg/dL Estimated GFR ML/MIN Glucose (74-106) mg/dL POC Glucometer 170 H (74 to 106) mg/dL Calcium (8.4-10.2) mg/dL Total Bilirubin (0.2-1.3) mg/dL AST (17-59) U/L ALT (0-50) U/L Alkaline Phosphatase (38-126) U/L Troponin I 0.024 0.025 (0.000-0.034) ng/mL Serum Total Protein (6.3-8.2) g/dL Albumin (3.5-5.0) g/dL Triglycerides (30-150) mg/dL Cholesterol (50-200) mg/dL LDL Cholesterol (30-100) mg/dL HDL Cholesterol (40-60) mg/dL Heart Disease Risk Ratio TSH 3rd Generation (0.47-4.68) mIU/L Digoxin (0.8-1.9) ng/mL Influenza Type A Ag (NEGATIVE) Influenza Type B Ag (NEGATIVE) RSV (PCR) (Negative) SARS-CoV-2 (PCR) (NEGATIVE) 05/04/21 05/04/21 05/04/21 Range/Units 05:20 07:14 11:16 Sodium (137-145) mmol/L Potassium (3.5-5.1) mmol/L Chloride (98-107) mmol/L Carbon Dioxide (22-30) mmol/L Anion Gap (5-15) MEQ/L BUN (9-20) mg/dL Creatinine (0.66-1.25) mg/dL Estimated GFR ML/MIN Glucose (74-106) mg/dL POC Glucometer 157 H 152 H (74 to 106) mg/dL Calcium (8.4-10.2) mg/dL Total Bilirubin (0.2-1.3) mg/dL AST (17-59) U/L ALT (0-50) U/L Alkaline Phosphatase (38-126) U/L Troponin I (0.000-0.034) ng/mL Serum Total Protein (6.3-8.2) g/dL Albumin (3.5-5.0) g/dL Triglycerides 100 (30-150) mg/dL Cholesterol 74 (50-200) mg/dL LDL Cholesterol < 36 (30-100) mg/dL HDL Cholesterol 19 L (40-60) mg/dL Heart Disease Risk Ratio 3.9 TSH 3rd Generation (0.47-4.68) mIU/L Digoxin (0.8-1.9) ng/mL Influenza Type A Ag (NEGATIVE) Influenza Type B Ag (NEGATIVE) RSV (PCR) (Negative) SARS-CoV-2 (PCR) (NEGATIVE) Accuchecks Date 05/04/21 Date 05/03/21 Time 07:27 Time 21:51 - Radiology Impressions Radiology Exams & Impressions: Radiology Procedures Category Date Time Status ECHO W/2D AND DOPPLER [US] Routine Exams 05/04/21 10:30 Taken HEAD WITHOUT CONTRAST [CT] Stat Exams 05/03/21 11:38 Completed - Other Procedures and Tests Respiratory Therapy 05/03/21 19:25 Oxygen Nasal Cannula 2 lpm Respiratory Therapy Assessment DAILY 05/03/21 22:49 BiPap/CPAP ROUTINE 05/05/21 05:00 EKG ROUTINE 05/06/21 05:00 EKG ROUTINE Assessment/Plan (1) BPPV (benign paroxysmal positional vertigo) Current Visit: Yes Status: Acute Qualifiers: Laterality: unspecified laterality Qualified Code(s): H81.10 - Benign paroxysmal vertigo, unspecified ear Assessment & Plan: PT should eval pt if not done inpatient. F/u with Dr. Montes. Code(s): H81.10 - BENIGN PAROXYSMAL VERTIGO, UNSPECIFIED EAR (2) Chronic renal insufficiency Current Visit: Yes Status: Chronic Qualifiers: Chronic kidney disease stage: stage 3 (moderate) Code(s): N18.9 - CHRONIC KIDNEY DISEASE, UNSPECIFIED Hospital Summary - Hospital Course Hospital Course: Pt is 76 yo male pt of Dr. Montes and [place] [facility] (also sees Dr. Leon, Dr. Clark, and Dr. Vallejo) with afib who was admitted through ER with vertigo, likely BPPV. CT head was non acute. Labs nonacute (his eGFR was 28.1 which seems to be near his normal). He was admitted and teleneurology consult was done; there is no note on the chart, but the ER doctor spoke with neurologist, who thought BPPV was indeed the likely dx, but advised since pt has risk factors for CVA to do an echocardiogram and an MRI/MRA of the neck. Pt unable to have MRI due to indwelling electronic cardiac device. Pt is feeling normal on day of discharge and his cranial nerve exam is nl (aside from decreased CN VIII bilaterally). His L ear has an ear wax impaction which was flushed by the RN. Pt to f/u with Dr. Montes in [address] Vallejo soon as well. - Vitals & Intake/Output Vital Signs: Vital Signs Temperature 98.6 F 05/04/21 11:52 Pulse Rate 49 L 05/04/21 11:52 Respiratory Rate 18 05/04/21 11:52 Blood Pressure 129/61 05/04/21 11:52 O2 Sat by Pulse Oximetry 93 L 05/04/21 11:52 Intake & Output: Intake & Output 05/02/21 05/03/21 05/04/21 05/05/21 11:59 11:59 11:59 11:59 Intake Total 440 Output Total 1400 Balance -960 Weight 99.79 kg 99.79 kg - Lab Result Diagrams: 05/03/21 11:30 05/03/21 14:29 Lab Results-Last 24 Hrs: Lab Results-Last 24 Hours 05/03/21 05/03/21 05/03/21 Range/Units 11:30 12:00 14:28 Sodium (137-145) mmol/L Potassium (3.5-5.1) mmol/L Chloride (98-107) mmol/L Carbon Dioxide (22-30) mmol/L Anion Gap (5-15) MEQ/L BUN (9-20) mg/dL Creatinine (0.66-1.25) mg/dL Estimated GFR ML/MIN Glucose (74-106) mg/dL POC Glucometer (74 to 106) mg/dL Calcium (8.4-10.2) mg/dL Total Bilirubin (0.2-1.3) mg/dL AST (17-59) U/L ALT (0-50) U/L Alkaline Phosphatase (38-126) U/L Troponin I 0.024 (0.000-0.034) ng/mL Serum Total Protein (6.3-8.2) g/dL Albumin (3.5-5.0) g/dL Triglycerides (30-150) mg/dL Cholesterol (50-200) mg/dL LDL Cholesterol (30-100) mg/dL HDL Cholesterol (40-60) mg/dL Heart Disease Risk Ratio TSH 3rd Generation 2.830 (0.47-4.68) mIU/L Digoxin 1.8 (0.8-1.9) ng/mL Influenza Type A Ag (NEGATIVE) Influenza Type B Ag (NEGATIVE) RSV (PCR) (Negative) SARS-CoV-2 (PCR) (NEGATIVE) 05/03/21 05/03/21 05/03/21 Range/Units 14:29 16:44 18:09 Sodium 142 (137-145) mmol/L Potassium 4.0 (3.5-5.1) mmol/L Chloride 98 (98-107) mmol/L Carbon Dioxide 31 H (22-30) mmol/L Anion Gap 16.1 H (5-15) MEQ/L BUN 43 H (9-20) mg/dL Creatinine 2.39 H (0.66-1.25) mg/dL Estimated GFR 28.1 ML/MIN Glucose 104 (74-106) mg/dL POC Glucometer (74 to 106) mg/dL Calcium 8.9 (8.4-10.2) mg/dL Total Bilirubin 1.10 (0.2-1.3) mg/dL AST 25 (17-59) U/L ALT 19 (0-50) U/L Alkaline Phosphatase 152 H (38-126) U/L Troponin I 0.023 (0.000-0.034) ng/mL Serum Total Protein 8.0 (6.3-8.2) g/dL Albumin 4.3 (3.5-5.0) g/dL Triglycerides (30-150) mg/dL Cholesterol (50-200) mg/dL LDL Cholesterol (30-100) mg/dL HDL Cholesterol (40-60) mg/dL Heart Disease Risk Ratio TSH 3rd Generation (0.47-4.68) mIU/L Digoxin (0.8-1.9) ng/mL Influenza Type A Ag NEGATIVE (NEGATIVE) Influenza Type B Ag NEGATIVE (NEGATIVE) RSV (PCR) NEGATIVE (Negative) SARS-CoV-2 (PCR) NEGATIVE (NEGATIVE) 05/03/21 05/03/21 05/03/21 Range/Units 20:51 21:30 23:40 Sodium (137-145) mmol/L Potassium (3.5-5.1) mmol/L Chloride (98-107) mmol/L Carbon Dioxide (22-30) mmol/L Anion Gap (5-15) MEQ/L BUN (9-20) mg/dL Creatinine (0.66-1.25) mg/dL Estimated GFR ML/MIN Glucose (74-106) mg/dL POC Glucometer 170 H (74 to 106) mg/dL Calcium (8.4-10.2) mg/dL Total Bilirubin (0.2-1.3) mg/dL AST (17-59) U/L ALT (0-50) U/L Alkaline Phosphatase (38-126) U/L Troponin I 0.024 0.025 (0.000-0.034) ng/mL Serum Total Protein (6.3-8.2) g/dL Albumin (3.5-5.0) g/dL Triglycerides (30-150) mg/dL Cholesterol (50-200) mg/dL LDL Cholesterol (30-100) mg/dL HDL Cholesterol (40-60) mg/dL Heart Disease Risk Ratio TSH 3rd Generation (0.47-4.68) mIU/L Digoxin (0.8-1.9) ng/mL Influenza Type A Ag (NEGATIVE) Influenza Type B Ag (NEGATIVE) RSV (PCR) (Negative) SARS-CoV-2 (PCR) (NEGATIVE) 05/04/21 05/04/21 05/04/21 Range/Units 05:20 07:14 11:16 Sodium (137-145) mmol/L Potassium (3.5-5.1) mmol/L Chloride (98-107) mmol/L Carbon Dioxide (22-30) mmol/L Anion Gap (5-15) MEQ/L BUN (9-20) mg/dL Creatinine (0.66-1.25) mg/dL Estimated GFR ML/MIN Glucose (74-106) mg/dL POC Glucometer 157 H 152 H (74 to 106) mg/dL Calcium (8.4-10.2) mg/dL Total Bilirubin (0.2-1.3) mg/dL AST (17-59) U/L ALT (0-50) U/L Alkaline Phosphatase (38-126) U/L Troponin I (0.000-0.034) ng/mL Serum Total Protein (6.3-8.2) g/dL Albumin (3.5-5.0) g/dL Triglycerides 100 (30-150) mg/dL Cholesterol 74 (50-200) mg/dL LDL Cholesterol < 36 (30-100) mg/dL HDL Cholesterol 19 L (40-60) mg/dL Heart Disease Risk Ratio 3.9 TSH 3rd Generation (0.47-4.68) mIU/L Digoxin (0.8-1.9) ng/mL Influenza Type A Ag (NEGATIVE) Influenza Type B Ag (NEGATIVE) RSV (PCR) (Negative) SARS-CoV-2 (PCR) (NEGATIVE) Micro Results-Entire Visit: Accuchecks Date 05/04/21 Date 05/03/21 Time 07:27 Time 21:51 - Radiology Exams Ordered Rad Exams-Entire Visit: Radiology Procedures Category Date Time Status ECHO W/2D AND DOPPLER [US] Routine Exams 05/04/21 10:30 Taken HEAD WITHOUT CONTRAST [CT] Stat Exams 05/03/21 11:38 Completed - Procedures and Test Procedures and Tests throughout Hospitalization: Therapy Orders & Screens 05/03/21 19:25 EKG ROUTINE Comment: Diagnosis: BPPV, dizziness Oxygen Nasal Cannula 2 lpm Comment: Diagnosis: BPPV, dizziness Respiratory Therapy Assessment DAILY Comment: Diagnosis: BPPV, dizziness 05/03/21 22:49 BiPap/CPAP ROUTINE Comment: Diagnosis: BPPV, dizziness 05/04/21 05:00 EKG ROUTINE Comment: Diagnosis: BPPV, dizziness 05/05/21 05:00 EKG ROUTINE Comment: Diagnosis: BPPV, dizziness 05/06/21 05:00 EKG ROUTINE Comment: Diagnosis: BPPV, dizziness - Discharge Disposition: Home, Self-Care Condition: Good Prescriptions: New Meclizine HCl 25 mg [Antivert 25 mg] 25 mg PO Q6H PRN PRN #30 tablet PRN Reason: Dizziness Carbamide Peroxide [Ear Wax Drops] 1 drop OT BID 14 Days #1 unit Continue Bumetanide [Bumex] 2 mg PO BID Metoprolol Tartrate 25 mg PO BID Albuterol Sulfate [Proair Hfa] 8.5 gm IH QIDPRN PRN PRN Reason: Shortness Of Breath Tiotropium [place] [Spiriva Respimat] 2 puffs IH DAILY Apixaban [Eliquis] 5 mg PO BID Tamsulosin HCl 0.4 mg [Flomax 0.4 MG] 0.4 mg PO DAILY Glipizide [Glipizide ER] 5 mg PO DAILY Finasteride 5 mg [Proscar 5 MG] 5 mg PO DAILY Famotidine [Pepcid] 20 mg PO HS Digoxin 0.125 mg Tablet [Lanoxin 0.125MG TABLET] 0.125 mg PO DAILY Atorvastatin Calcium [Lipitor] 40 mg PO HS Alendronate Sodium 70 mg [Fosamax 70 MG] 35 mg PO WEEKLY Aspirin 81 mg PO HS Potassium Chloride 10 meq PO BID Allopurinol 100 mg [Zyloprim 100 mg] 100 mg PO DAILY Dapagliflozin Propanediol [Farxiga] 5 mg PO DAILY Levothyroxine Sodium 50 mcg PO DAILY Nitroglycerin 0.4 mg/Hr [Nitro-Dur 0.4 MG/HR] 0.4 mg TD DAILY Follow up with: ALONDRA MONTES [Primary Care Provider] -
[2021-05-04] MEDS ORDERED: LIPITOR 40MG PO SCH (22:00)
[2021-05-04] MEDS ORDERED: ZOCOR 20MG PO SCH (22:00)
== END 2021-05-04 13:30 | disposition home or self-care (01) ==
LOC: ED 11:02 → MED SURG 17:47
PROVIDERS: ADMIT Family Medicine; ATTEND Family Medicine
DX: H81.13 Benign paroxysmal vertigo, bilateral (principal); I13.0 Hypertensive heart and chronic kidney disease with heart failure and stage 1 through stage 4 chronic kidney disease, or unspecified chronic kidney disease; E11.22 Type 2 diabetes mellitus with diabetic chronic kidney disease; N18.9 Chronic kidney disease, unspecified; I48.91 Unspecified atrial fibrillation; I11.0 Hypertensive heart disease with heart failure; I50.9 Heart failure, unspecified; J44.9 Chronic obstructive pulmonary disease, unspecified; Z20.828 Contact with and (suspected) exposure to other viral communicable diseases; Z79.899 Other long term (current) drug therapy; Z79.01 Long term (current) use of anticoagulants
CPT/HCPCS: 0241U; 36000; 36415; 69210; 70450; 80053; 80061; 80162; 82947; 83721; 83735; 84443; 84484; 85025; 93005; 93306; 94640; 94660; 94760; 99285; 93268; A9270-GY; G0378

== ENCOUNTER 2021-05-26 08:22 | Day surgery (SDC) | payer MEDICARE ==
--- NOTE | 2021-05-20 10:29 | HP ---
DATE OF SURGERY: 05/26/2021 HISTORY OF PRESENT ILLNESS: The patient presented with bilateral hand lesions. The lesions have been biopsied and shown to be a squamous cell carcinoma. The patient presents for re-excision. The patient has a left hand lesion requiring a skin graft. The patient has a few smaller lesion on the right hand which will be closed. PAST MEDICAL HISTORY: Chronic obstructive pulmonary disease, atrial fibrillation, chronic kidney disease, diabetes. PAST SURGICAL HISTORY: None reported. ALLERGIES: PENICILLIN. MEDICATIONS: Pepcid, alendronate, atorvastatin, aspirin, metoprolol, Nitro, ProAir, Spiriva, finasteride, bumetanide, allopurinol, glipizide, Eliquis, digoxin, iron, Flomax, Farxiga, levothyroxine. FAMILY HISTORY: Heart disease, liver disease, kidney disease. SOCIAL HISTORY: None reported. REVIEW OF SYSTEMS: CONSTITUTIONAL: Denies fever or chills. CHEST: Denies shortness of breath. CVS: Denies chest pain. ABDOMEN: Denies abdominal pain. INTEGUMENTARY: Squamous cell carcinoma lesions of the left and right hand. PHYSICAL EXAMINATION: GENERAL: No acute distress. CHEST: Nonlabored. No shortness of breath. CVS: Regular rate and rhythm. ABDOMEN: Soft, nontender. INTEGUMENTARY: Squamous cell carcinoma lesions of the left and right hand. IMPRESSION: Squamous cell carcinoma lesions of the left and right hand. PLAN: Excision of left hand lesion with split thickness skin graft, excision and closure of two lesions of the right hand with Dr. Vazquez Loya. As dictated by Tiffanie Lu NP.
[~2021-05-26 08:22] MED LIST: Lactated Ringers 1,000 ML IV SCH; MINERAL OIL LIGHT 10 ML FOR SURGERY ONE; Sensorcaine 0.25% 10 ML ONE
[2021-05-26] MEDS ORDERED: DEMEROL 50 MG SDV IJ ONE (08:23)
[2021-05-26] MEDS ORDERED: VERSED 5 MG/5 ML IV ONE (08:23)
[2021-05-26] MEDS ORDERED: Sodium Chloride 0.9% 1000 ML 1,000 ML IV SCH (08:45)
[2021-05-26] MEDS ORDERED: Sensorcaine 0.25% 10 ML ONE (11:48)
[2021-05-26] MEDS ORDERED: Triple Antibiotic Ointment ONE (11:55)
[2021-05-26 13:26] VITALS: BP 128/77; PULSE 57; O2SAT 92
--- NOTE | 2021-05-26 14:05 | OP ---
SURGERY DATE/TIME: 05/26/2021 1111 PREOPERATIVE DIAGNOSES: 1) Two atypical areas right hand 8 mm each both on the dorsum of the right hand. 2) A 2 cm previous incision from a near complete removal of a squamous cell cancer on the dorsum of the left hand. POSTOPERATIVE DIAGNOSES: 1) Two atypical areas right hand 8 mm each both on the dorsum of the right hand. 2) A 2 cm previous incision from a near complete removal of a squamous cell cancer on the dorsum of the left hand. PROCEDURES: Excision of a 2.4 cm [place] of skin around the previous incision cancer site left dorsum hand full thickness with application of partial thickness 4 sq/cm split thickness skin graft with harvest and application of such. SURGEON: Vazquez Loya M.D. ANESTHESIA: Local IV sedation. COMPLICATIONS: None. CONDITION: Stable. INDICATION: The patient has these lesions. DESCRIPTION OF PROCEDURE: IV sedation titrated. Oximetry kept over 90%. Comfort level satisfactory. Local 0.25% was also used. The two small 4 mm lesions on the dorsum of the right hand were elliptically excised and closed with 4-0 Vicryl. On the left hand 2.2 cm incision site was taken in a cylindrical fashion full thickness and delivered. Hemostasis obtained with electrocautery. It was approximated with about 20 sutures #4-0 chromic inverting the skin graft down to the tissue. Sterile ointment, Adaptic, Telfa, wrap, Giuliano, Kerlix were all placed. Findings discussed with the in the waiting room.
== END 2021-05-26 13:38 | disposition home or self-care (01) ==
LOC: SDC 08:22
PROVIDERS: ATTEND Surgery
DX: C44.622 Squamous cell carcinoma of skin of right upper limb, including shoulder (principal); E11.9 Type 2 diabetes mellitus without complications
CPT/HCPCS: 82947; J2175; J2250; A9270-GY

== ENCOUNTER 2022-03-08 09:08 | Emergency (ER) | payer MEDICARE ==
--- NOTE | 2022-03-08 10:04 | ERPHSYRPT ---
- History of Present Illness Time Seen by Provider: 03/08/22 10:04 Source: patient Exam Limitations: no limitations Physician History: 77-year-old male presenting to the ER today with a nosebleed that started around 6:00 this morning. Patient reports he was blowing his nose with a large chunk came out and large amounts of bleeding ensued. Patient is on Eliquis 2.5 mg tw ice daily and wears oxygen at home. Patient was unable to get the bleeding stopped with pressure at home. He has had nosebleeds requiring intervention before. Timing/Duration: abrupt onset, this morning Severity: severe ENT Location: nose Prearrival Treatment: squeezing nostrils Modifying Factors: Improves With: nothing Associated Symptoms: epistaxis Allergies/Adverse Reactions: Penicillins Allergy (Verified 03/08/22 10:01) Hives Home Medications: Albuterol Sulfate [Proair Hfa] 8.5 gm IH QIDPRN PRN 09/23/19 [History] Alendronate Sodium 70 mg [Fosamax 70 MG] 35 mg PO WEEKLY 09/23/19 [History] Atorvastatin Calcium [Lipitor] 40 mg PO HS 09/23/19 [History] Bumetanide [Bumex] 2 mg PO BID 09/23/19 [History] Digoxin 0.125 mg Tablet [Lanoxin 0.125MG TABLET] 0.125 mg PO DAILY 09/23/19 [History] Famotidine [Pepcid] 20 mg PO HS 09/23/19 [History] Finasteride 5 mg [Proscar 5 MG] 5 mg PO DAILY 09/23/19 [History] Glipizide [Glipizide ER] 5 mg PO DAILY 09/23/19 [History] Metoprolol Tartrate 25 mg PO BID 09/23/19 [History] Potassium Chloride 10 meq PO BID 09/23/19 [History] Tamsulosin HCl 0.4 mg [Flomax 0.4 MG] 0.4 mg PO DAILY 09/23/19 [History] Tiotropium [place] [Spiriva Respimat] 2 puffs IH DAILY 09/23/19 [History] Allopurinol 100 mg [Zyloprim 100 mg] 100 mg PO DAILY 05/03/21 [History] Dapagliflozin Propanediol [Farxiga] 5 mg PO DAILY 05/03/21 [History] Levothyroxine Sodium 50 mcg PO DAILY 05/03/21 [History] Nitroglycerin 0.4 mg/Hr [Nitro-Dur 0.4 MG/HR] 0.4 mg TD DAILY 05/03/21 [History] Hx Tetanus, Diphtheria Vaccination/Date Given: Yes Hx Influenza Vaccination/Date Given: Yes Hx Pneumococcal Vaccination/Date Given: Yes Travel Risk - Vaccine Status Have you recieved a Covid-19 vaccination: Yes 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[employer]: [employer] - Vaccination Dates Date of 2cond Vaccination (if applicable): 05/2020 - Review of Systems Eyes: No Symptoms Ears, Nose, & Throat: Epistaxis Respiratory: No Symptoms Cardiac: No Symptoms Abdominal/Gastrointestinal: No Symptoms Genitourinary Symptoms: No Symptoms Musculoskeletal: No Symptoms Skin: No Symptoms Neurological: No Symptoms - Past Medical History Pertinent Past Medical History: Yes Neurological History: Stroke ENT History: No Pertinent History Cardiac History: Arrhythmia, Congenital Heart Disease, Hypertension Respiratory History: COPD, Other Endocrine Medical History: Diabetes Type II Musculoskeletal History: Arthritis GI Medical History: GERD, Ulcer History: Renal Disease Psycho-Social History: No Pertinent History Male Reproductive Disorders: Prostate Problems Other Medical History: Uses CPAP at night but denies sleep apnea - Past Surgical History Past Surgical History: Yes Neuro Surgical History: No Pertinent History Cardiac: Cardiac Catheterization, Cardiac Stent, Pacemaker Respiratory: No Pertinent History Gastrointestinal: Appendectomy Genitourinary: No Pertinent History Musculoskeletal: Orthopedic Surgery Male Surgical History: No Pertinent History Other Surgical History: Fractured pelvis with surgery in 1972. - Social History Smoking Status: Former smoker How long have you smoked: 40 Exposure to second hand smoke: No Drug Use: none Patient Lives Alone: No - Nursing Vital Signs Nursing Vital Signs: Initial Vital Signs Temperature 97.2 F 03/08/22 10:04 Pulse Rate 58 L 03/08/22 10:04 Respiratory Rate 19 03/08/22 10:04 Blood Pressure 144/62 03/08/22 10:04 O2 Sat by Pulse Oximetry 94 L 03/08/22 10:04 Pain Scale Pain Intensity 7 - Physical Exam General Appearance: no apparent distress Eye Exam: bilateral eye: normal inspection Nasal Exam: active bleeding (right nostril, mid to posterior septum w/ small defect in mucosa) Throat Exam: normal, pharynx normal Neck Exam: normal inspection Cardiovascular/Respiratory Exam: regular rate/rhythm, no respiratory distress Abdominal Exam: soft Neurologic Exam: alert, oriented x 3, cooperative Skin Exam: normal color, warm, dry O2 Delivery: Nasal Cannula Procedures - Additional Procedures Progress: Cauterization of epistaxis, right nasal septum Afrin sprayed into right nasal space prior to cauterization Exam of nasal membrane revealed oozing from medial septum approximately 3cm deep to the nares Silver nitrate was used for cauterization. Patient tolerated procedure well. Bacitracin was applied afterwards. Patient was hemostatic for close to an hour after the procedure on his nose started to bleed again so decision was made to place a rhino rocket rhino rocket placement if 5.5 cm anterior right a rocket was selected is removed from the package in soaked in sterile water, small amount of lubricant was applied to the outside rocket was inserted into the right nostril and inserted to wear the base of the tubing was visible 20 cc of recommended air was attempted to be placed into the bladder, but the patient was only able to tolerate roughly 16cc patient was evaluated for 30 minutes after placement, no bleeding present, panel given for headache - Course Nursing assessment & vital signs reviewed: Yes Ordered Tests: Medication Summary Discontinued Medications Generic Name Dose Route Start Last Admin Trade Name Anne Marie PRN Reason Stop Dose Admin Acetaminophen 1,000 mg 03/08/22 12:58 03/08/22 12:59 Acetaminophen 500 Mg Tablet PO 03/08/22 12:59 1,000 mg STAT STA Administration Acetaminophen Confirm 03/08/22 12:58 Acetaminophen 500 Mg Tablet Administered 03/08/22 12:59 Dose 1,000 mg .ROUTE .STK-MED ONE Bacitracin Zinc Confirm 03/08/22 12:09 Bacitracin Packet 1 Each Pckt Administered 03/08/22 12:10 Dose 1 each .ROUTE .STK-MED ONE Phenylephrine HCl 15 ml 03/08/22 10:35 03/08/22 10:39 Neosynephrine 0.5% Nasal [place]/Drops NS 03/08/22 10:36 15 ml STAT ONE Administration Phenylephrine HCl Confirm 03/08/22 10:39 Neosynephrine 0.5% Nasal [place]/Drops Administered 03/08/22 10:40 Dose 15 ml .ROUTE .STK-MED ONE Silver Nitrate Confirm 03/08/22 10:17 Silver Nitrate 1 Pkt Each Administered 03/08/22 10:18 Dose 1 pkt TP .STK-MED ONE Silver Nitrate 1 pkt 03/08/22 10:35 03/08/22 10:38 Silver Nitrate 1 Pkt Each TP 03/08/22 10:36 1 pkt STAT ONE Administration Silver Nitrate Confirm 03/08/22 11:59 Silver Nitrate 1 Pkt Each Administered 03/08/22 12:00 Dose 1 pkt TP .STK-MED ONE Lab/Rad Data: Laboratory Result Diagrams 03/08/22 10:35 Laboratory Results 03/08/22 03/08/22 Range/Units 12:51 10:35 WBC 6.5 (4.0-10.5) x10^3/uL RBC 4.15 (4.1-5.6) x10^6/uL Hgb 11.4 L (12.5-18.0) g/dL Hct 36.7 L (42-50) % MCV 88.4 (78-100) fL MCH 27.5 (26-32) pg MCHC 31.1 L (32-36) g/dL RDW 14.5 H (11.5-14.0) % Plt Count 125 L (150-450) x10^3/uL MPV 9.6 (7.5-11.0) fL Gran % 67.5 H (36.0-66.0) % Immature Gran % (Auto) 0.5 H (0.00-0.4) % Nucleat RBC Rel Count 0.0 (0.00-0.1) % Eos # (Auto) 0.19 (0-0.5) x10^3/uL Immature Gran # (Auto) 0.03 (0.00-0.03) x10^3u/L Absolute Lymphs (auto) 1.09 (1.0-4.6) x10^3/uL Absolute Monos (auto) 0.73 (0.0-1.3) x10^3/uL Absolute Nucleated RBC 0.00 (0.00-0.01) x10^3u/L Lymphocytes % 16.7 L (24.0-44.0) % Monocytes % 11.2 (0.0-12.0) % Eosinophils % 2.9 (0.00-5.0) % Basophils % 1.2 (0.0-0.4) % Absolute Granulocytes 4.40 (1.4-6.9) x10^3/uL Basophils # 0.08 (0-0.4) x10^3/uL POC Glucometer 85 (74 to 106) mg/dL - Progress Progress: improved Progress Note: initial attempts at cautery with silver nitrate was unsuccessful the patient had to have a rhino rocket placed. Please see procedure note for full details on placement. ENT was contacted and was able to work him in for the next day appointment for evaluation. Discussed the importance of returning to the ER if bleeding continues despite rocket being in place. Encouraged patient to schedule Tylenol doses for pain control. Hemoglobin obtain due to the amount of blood lost this morning came back 11.4 which is in the patient's normal range. 03/10/22 16:07 03/10/22 16:[address] Other ([facility]) Will see patient in: office Counseled pt/family regarding: lab results, need for follow-up - Departure Departure Disposition: Home Clinical Impression: Epistaxis, On anticoagulant therapy, On supplemental oxygen by nasal cannula Condition: Fair Critical Care Time: No Referrals: ALONDRA HERNANDEZ [Primary Care Provider] - Follow up/PCP as directed RAMONA HOANG [NON-STAFF PHY W/O PRIVILEGES] - 03/09/22 (w/in the next week ) Instructions: Nosebleeds (DC) Additional Instructions: Hold Eliquis for the rest of today. Call Dr. Vallejo to see how long he is agreeable to hold. Discussed utilizing the max dose of 4g of Tylenol per day as long as the rhino rocket is in place.
[2022-03-08] MEDS ORDERED: ARZOL Silver Nitrate Applicator TP ONE ×3 (10:17→11:59)
[2022-03-08] MEDS ORDERED: NEOSYNEPHRINE 0.5% NASAL SPRAY/DROPS NS ONE (10:35)
[2022-03-08] MEDS ORDERED: NEOSYNEPHRINE 0.5% NASAL SPRAY/DROPS ONE (10:39)
[2022-03-08 10:50] LABS: Basophil (Absolute #) 0.08 x10^3/uL (0-0.4); Eosinophil % 2.9 % (0.00-5.0); Eosinophil (Absolute #) 0.19 x10^3/uL (0-0.5); Hematocrit 36.7 % (42-50); Hemoglobin 11.4 g/dL (12.5-18.0); Lymphocyte (Absolute #) 1.09 x10^3/uL (1.0-4.6); Lymphocytes % 16.7 % (24.0-44.0); Mean Cell Volume 88.4 fL (78-100); Mean Corpuscular Hemoglobin 27.5 pg (26-32); Mean Corpuscular Hgb Concent. 31.1 g/dL (32-36); Mean Platelet Volume 9.6 fL (7.5-11.0); Monocyte (Absolute #) 0.73 x10^3/uL (0.0-1.3); Monocytes % 11.2 % (0.0-12.0); Neutrophil % 67.5 % (36.0-66.0); Platelet Count 125 x10^3/uL (150-450); Red Blood Count 4.15 x10^6/uL (4.1-5.6); Red Cell Distribution Width 14.5 % (11.5-14.0); White Blood Count 6.5 x10^3/uL (4.0-10.5)
[2022-03-08] MEDS ORDERED: BACIGUENT PACKET ONE (12:09)
[2022-03-08] MEDS ORDERED: TYLENOL EXTRA STRENGTH 500 MG PO STA (12:58)
[2022-03-08] MEDS ORDERED: TYLENOL EXTRA STRENGTH 500 MG ONE (12:58)
[2022-03-08 13:07] VITALS: BP 144/70; PULSE 80; O2SAT 95
== END 2022-03-08 13:07 | disposition home or self-care (01) ==
LOC: ED 09:08
DX: R04.0 Epistaxis (principal); D68.32 Hemorrhagic disorder due to extrinsic circulating anticoagulants; T45.515A Adverse effect of anticoagulants, initial encounter; Z99.81 Dependence on supplemental oxygen; I10 Essential (primary) hypertension; E11.9 Type 2 diabetes mellitus without complications; Z79.84 Long term (current) use of oral hypoglycemic drugs; Z79.01 Long term (current) use of anticoagulants; Z79.899 Other long term (current) drug therapy
CPT/HCPCS: 36415; 82947; 85025; 99283; A9270-GY

== ENCOUNTER 2022-07-20 06:26 | Day surgery (SDC) | payer MEDICARE ==
--- NOTE | 2022-07-19 13:54 | HP ---
DATE OF SURGERY: 07/20/2022 HISTORY OF PRESENT ILLNESS: The patient is a 77-year-old male presents with anemia. The patient has had bone marrow biopsy with no leukemia or cancer was noted. He has chronic kidney disease. He takes Nitro. Last colonoscopy eleven or twelve years ago. He had polyps. He is on 2 liters nasal cannula all of the time. PAST MEDICAL HISTORY: Heart disease, heart failure, hypertension, diabetes, pacemaker, chronic obstructive pulmonary disease, chronic kidney disease, prostate. PAST SURGICAL HISTORY: Appendectomy. Cardiac stent. ALLERGIES: PENICILLIN. MEDICATIONS: Digoxin, albuterol, alendronate, Synthroid, atorvastatin, glipizide, tamsulosin, allopurinol, metoprolol, trazodone, tramadol, meclizine, famotidine, potassium, Farxiga, finasteride. FAMILY HISTORY: None reported. SOCIAL HISTORY: Former smoker. REVIEW OF SYSTEMS: CONSTITUTIONAL: Denies fever or chills. CHEST: Denies shortness of breath. CVS: Denies chest pain. ABDOMEN: Denies abdominal pain. PHYSICAL EXAMINATION: GENERAL: No acute distress. CHEST: Nonlabored. No shortness of breath. CVS: Regular rate and rhythm. ABDOMEN: Soft. IMPRESSION: Anemia, thrombocytopenia, chronic kidney disease, atrial fibrillation. PLAN: EGD and colonoscopy with Dr. Vazquez Loya. As dictated by Tiffanie Lu NP.
[2022-07-20] MEDS ORDERED: Lactated Ringers 1,000 ML IV SCH (07:00)
[2022-07-20] MEDS ORDERED: Lactated Ringers 1,000 ML IV ONE ×2 (07:19→10:31)
[2022-07-20] MEDS ORDERED: DIPRIVAN 200 MG/20 ML IV ONE ×3 (09:56→10:38)
[2022-07-20] MEDS ORDERED: GlucaGen 1 MG ONE (10:15)
[2022-07-20 11:15] VITALS: PULSE 50; O2SAT 92
[2022-07-20 11:36] VITALS: BP 138/61
--- NOTE | 2022-07-20 13:07 | OP ---
SURGERY DATE/TIME: 07/20/2022 1000 PREOPERATIVE DIAGNOSIS: Anemia. POSTOPERATIVE DIAGNOSES: 1) EGD - Grade 3 gastroesophageal reflux disease, mild gastritis. 2) Colonoscopy - Severe sigmoid diverticulosis. PROCEDURES: 1) EGD. Grade 2/3 reflux otherwise negative. 2) Colonoscopy complete to cecum hot snare polypectomy 1.5 cm x1. 3) Cold biopsy forceps polypectomy 8 mm x1. SURGEON: Vazquez Loya M.D. RESEARCH PHYSIOLOGIST: Santo Jimenez M.D. ANESTHESIA: MAC. COMPLICATIONS: None. CONDITION: Stable. INDICATION: A patient with anemia. DESCRIPTION OF PROCEDURE: Taken to endoscopy. Left lateral decubitus position. Pharyngoesophageal junction normal. Esophagus normal down to gastroesophageal junction. There was grade 3 gastroesophageal reflux disease. No hiatal hernia. There was a mild gastritis. He had cold biopsy of the stomach was performed. Cold biopsy of antrum was performed. Pylorus satisfactory. Duodenal bulb satisfactory. Second portion satisfactory. Scope brought back and looped upon itself. No hiatal hernia. Scope withdrawn. Anal digital examination satisfactory. Scope introduced. There was severe sigmoid diverticulosis. The scope advanced over the base of the cecum. Base of the cecum, ileocecal valve, appendiceal orifice was normal. Going back just a little bit there is a 1.5 cm polyp that was taken. Sample taken was a regular hot biopsy forceps but then it was snared at its base with hot snare and taken. Coming up from this, an 8 mm polyp was taken with cold biopsy forceps. The rest of the exam satisfactory. Circumferential withdraw. The patient tolerated the procedure satisfactory. Findings discussed with his in the waiting room.
== END 2022-07-20 11:48 | disposition home or self-care (01) ==
LOC: SDC 06:26
PROVIDERS: ATTEND Surgery
DX: K21.9 Gastro-esophageal reflux disease without esophagitis (principal); D64.9 Anemia, unspecified; D12.2 Benign neoplasm of ascending colon; E11.9 Type 2 diabetes mellitus without complications; E11.22 Type 2 diabetes mellitus with diabetic chronic kidney disease; I12.9 Hypertensive chronic kidney disease with stage 1 through stage 4 chronic kidney disease, or unspecified chronic kidney disease; N18.9 Chronic kidney disease, unspecified; K29.70 Gastritis, unspecified, without bleeding; K57.30 Diverticulosis of large intestine without perforation or abscess without bleeding
CPT/HCPCS: 82947; 99100; J1610; J2704

== ENCOUNTER 2023-06-14 10:26 | Day surgery (SDC) | payer MEDICARE ==
--- NOTE | 2023-06-13 08:27 | HP ---
DATE OF SURGERY: 06/14/2023 HISTORY OF PRESENT ILLNESS: The patient is an 78-year-old male presents with a couple of skin lesions. These are left hand lesions. They are atypical in nature. I recommend excision. PAST MEDICAL HISTORY: Heart disease, hypertension, diabetes, pacemaker, chronic obstructive pulmonary disease, kidney disease. PAST SURGICAL HISTORY: Pacemaker/defibrillator. Cardiac catheterization. Cardiac stent. Uroplasty. Appendectomy. ALLERGIES: PENICILLIN. MEDICATIONS: Spiriva, aspirin, Eliquis, allopurinol, metoprolol, empagliflozin, digoxin, ipratropium, albuterol, alendronate, levothyroxine, atorvastatin, glipizide, bumetanide, Pepcid, finasteride. FAMILY HISTORY: Renal disease, liver failure. SOCIAL HISTORY: Former smoker. REVIEW OF SYSTEMS: CONSTITUTIONAL: Denies fever or chills. CHEST: Denies shortness of breath. CVS: Denies chest pain. ABDOMEN: Denies abdominal pain. PHYSICAL EXAMINATION: GENERAL: No acute distress. CHEST: Nonlabored. No shortness of breath. CVS: Regular rate and rhythm. ABDOMEN: Soft. IMPRESSION: 1) Left hand lesion x1. 2) Left neck lesion x1. PLAN: Excision of left hand lesion with split thickness skin graft and excision of a posterior neck lesion with closure by Dr. Vazquez Loya. As dictated by Tiffanie Lu NP.
[~2023-06-14 10:26] MED LIST changes: -Lactated Ringers 1,000 ML IV SCH; -MINERAL OIL LIGHT 10 ML FOR SURGERY ONE
[2023-06-14] MEDS ORDERED: Lactated Ringers 1,000 ML IV ONE (11:22)
[2023-06-14] MEDS ORDERED: CLINDAMYCIN-D5W 900 MG/50 ML*** 900 MG/50 ML BAG IV ONE (11:22)
[2023-06-14] MEDS: Lactated Ringers 1,000 ML IV SCH (11:23)
[2023-06-14] MEDS: CLINDAMYCIN-D5W 900 MG/50 ML*** 900 MG/50 ML BAG IV SCH (11:26)
[2023-06-14 12:10] LABS: Absolute Neutrophil Ct (ANC) 3.04 x10^3/uL (1.4-6.9); BASOPHIL % 1.3 % (0.0-0.4); Basophil (Absolute #) 0.06 x10^3/uL (0-0.4); Eosinophil (Absolute #) 0.09 x10^3/uL (0-0.5); Hematocrit 38.1 % (42-50); IMMATURE GRAN # 0.02 x10^3u/L (0.00-0.03); IMMATURE GRAN % 0.4 % (0.00-0.4); Lymphocyte (Absolute #) 0.86 x10^3/uL (1.0-4.6); Lymphocytes % 18.9 % (24.0-44.0); Mean Cell Volume 93.2 fL (78-100); Mean Corpuscular Hemoglobin 29.3 pg (26-32); Mean Corpuscular Hgb Concent. 31.5 g/dL (32-36); Mean Platelet Volume 10.6 fL (7.5-11.0); Monocyte (Absolute #) 0.49 x10^3/uL (0.0-1.3); Monocytes % 10.7 % (0.0-12.0); Neutrophil % 66.7 % (36.0-66.0); Platelet Count 74 x10^3/uL (150-450); Red Blood Count 4.09 x10^6/uL (4.1-5.6); Red Cell Distribution Width 14.3 % (11.5-14.0); White Blood Count 4.6 x10^3/uL (4.0-10.5)
[2023-06-14 12:17] LABS: ANION GAP 14.4 MEQ/L (5-15); Creatinine 1 2.87 mg/dL (0.66-1.25); EST GLOMERULAR FILTRATION RATE 21.5 ML/MIN; Potassium 4.2 mmol/L (3.5-5.1)
[2023-06-14 12:44] LABS: Slide Review 1 YES
[2023-06-14] MEDS ORDERED: DIPRIVAN 200 MG/20 ML IV ONE (13:02)
[2023-06-14] MEDS ORDERED: Xylocaine-Mpf 2% 5 Ml Vial ONE (13:11)
[2023-06-14] MEDS ORDERED: Zofran 4 MG/2 ML VIAL ONE (13:11)
[2023-06-14] MEDS ORDERED: SUBLIMAZE 100 MCG/2 ML ONE (13:11)
[2023-06-14] MEDS ORDERED: Decadron 4 MG INJ ONE (13:11)
[2023-06-14] MEDS ORDERED: MINERAL OIL LIGHT 10 ML FOR SURGERY ONE (13:35)
[2023-06-14] MEDS ORDERED: Triple Antibiotic Ointment ONE (13:41)
[2023-06-14 15:15] VITALS: TEMP 97.5
[2023-06-14 15:55] VITALS: BP 114/68; PULSE 61; RESP 16; O2SAT 93
--- NOTE | 2023-06-15 08:20 | OP ---
SURGERY DATE/TIME: 06/14/2023 1311 PREOPERATIVE DIAGNOSIS: Atypical lesion left hand 2 x 2 cm. POSTOPERATIVE DIAGNOSIS: Atypical lesion left hand 2 x 2 cm, pathology pending. PROCEDURES: 1) Excision of 2 cm lesion dorsum left hand full thickness. 2) [place] of 4 square centimeters of full thickness skin graft from the left thigh with application onto the hand bed. SURGEON: Vazquez Loya M.D. ANESTHESIA: General. COMPLICATIONS: None. CONDITION: Stable. ESTIMATED BLOOD LOSS: None. INDICATION: The patient has an atypical hand lesion requiring excision. It will not close primarily. It will require a skin graft. DESCRIPTION OF PROCEDURE: He is taken to surgery. Routine prep and drape. It was circularly excised. It was full thickness excised. Hemostasis satisfactory. It had a free edge of about 1 mm around the lesion. Skin graft was harvested which was then applied with 20 sutures #4-0 chromic which were placed very carefully. Sterile ointment applied. Sterile dressing applied. Dressing to the harvest site. The patient tolerated the procedure satisfactorily.
== END 2023-06-14 16:10 | disposition home or self-care (01) ==
LOC: SDC 10:26
PROVIDERS: ATTEND Surgery
DX: L57.0 Actinic keratosis (principal); E11.9 Type 2 diabetes mellitus without complications; L99 Other disorders of skin and subcutaneous tissue in diseases classified elsewhere
CPT/HCPCS: 36415; 80048; 82947; 83036; 85025; 88305; 99100; J1100; J2405; J2704; J3010; A9270-GY

== ENCOUNTER 2023-06-15 10:56 | Emergency (ER) | payer MEDICARE ==
[2023-06-15 11:19] VITALS: RESP 20; TEMP 98.4; O2SAT 96
--- NOTE | 2023-06-15 11:42 | ERPHSYRPT ---
- History of Present Illness Time Seen by Provider: 06/15/23 11:09 Source: patient Exam Limitations: no limitations Patient Subjective Stated Complaint: pt states that yesterday here at [facility] he had surgery with Dr Osiel Loya where a skin cancer was removed from left hand and skin graft taken from left upper thigh. this morning when pt took his pajamas off there was bright red blood draining from left upper thigh dsg. pt reinforced dsg with gauze and dilan bandage. states he spoke with staff at Dr Loya's office who told pt to come to the ED for a dressing change. Triage Nursing Assessment: pt ambulated into room 9 independently with slow steady gait. pt is alert and oriented times three, able to speak in complete sentences, able to move all extremities, and with resp even and unlabored on home o2 of 2LPM per NC. left hand dressing CDI. Left upper thigh dressing wrapped with dilan wrap and gauze over surgical dressing. surgical dressing removed to reveal approx 2.5cm by 2.5cm skin graft donor noted to have minimal sanguineous drainage and what appears to be clot covering the majority of site. removed dressing was saturated in blood. pt denies pain, numbness or tingling, or any other ill feelings. Physician History: Patient is here with postoperative complication. Patient had a surgery with a skin graft done yesterday by Dr. Vazquez Loya. He called their office and was sent into the emergency department today for evaluation. Patient states that he has a blood through his skin graft wrapping. Patient had a 2.5 cm x 2.5 cm area removed from his left upper thigh. He has a soaked through 4 x 4. He we w rapped it with an Dilan wrap which did help stop blood loss somewhat. We did not receive a call from Dr. Loya's office prior to him arriving. He is not hypotensive, tachycardic, no other injuries. Allergies/Adverse Reactions: Penicillins Allergy (Verified 06/15/23 10:59) Hives Home Medications: Alendronate Sodium 70 mg [Fosamax 70 MG] 35 mg PO WEEKLY 09/23/19 [History] Atorvastatin Calcium [Lipitor] 20 mg PO HS 09/23/19 [History] Bumetanide [Bumex] 2 mg PO BID 09/23/19 [History] Digoxin 0.125 mg Tablet [Lanoxin 0.125MG TABLET] 0.125 mg PO DAILY 09/23/19 [History] Famotidine [Pepcid] 20 mg PO HS 09/23/19 [History] Finasteride 5 mg [Proscar 5 MG] 5 mg PO DAILY 09/23/19 [History] Glipizide [Glipizide ER] 5 mg PO DAILY 09/23/19 [History] Metoprolol Tartrate 12.5 mg PO DAILY 09/23/19 [History] Potassium Chloride 10 meq PO BID 09/23/19 [History] Tamsulosin HCl 0.4 mg [Flomax 0.4 MG] 0.4 mg PO DAILY 09/23/19 [History] Allopurinol 100 mg [Zyloprim 100 mg] 100 mg PO DAILY 05/03/21 [History] Levothyroxine Sodium 50 mcg PO DAILY 05/03/21 [History] Albuterol Sulfate [Proair Respiclick] 90 mcg IH DAILY PRN PRN 07/20/22 [History] Empagliflozin [Jardiance] 10 mg PO DAILY 07/20/22 [History] Iron,Carb/Vit C/Vit B12/Folic [Iron 100 Plus Tablet] 1 each PO DAILY 07/20/22 [History] Nitroglycerin 0.4 mg/Hr [Nitro-Dur 0.4 MG/HR] 0.4 mg TOP BID 07/20/22 [History] Fluticasone/Umeclidin/Vilanter [Trelegy Ellipta 200-62.5-25] 1 each IH DAILY 06/14/23 [History] Pantoprazole Sodium [Protonix] 40 mg PO DAILY 06/14/23 [History] Hx Tetanus, Diphtheria Vaccination/Date Given: Yes Hx Influenza Vaccination/Date Given: Yes Hx Pneumococcal Vaccination/Date Given: Yes Immunizations Up to Date: Yes Travel Risk - International Travel Have you traveled outside of the country in past 3 weeks: No - Emerging Infectious Disease Are you exhibiting symptoms associated with any current EIDs: No - Past Medical History Pertinent Past Medical History: Yes Neurological History: Stroke ENT History: No Pertinent History Cardiac History: Arrhythmia, Congestive Heart Failure, Hypertension Respiratory History: CHF, COPD, Other Endocrine Medical History: Diabetes Type II Musculoskeletal History: Arthritis GI Medical History: GERD, Ulcer History: Renal Disease Psycho-Social History: No Pertinent History Male Reproductive Disorders: Prostate Problems Other Medical History: stage 4 kidney disease, afib - Past Surgical History Past Surgical History: Yes Neuro Surgical History: No Pertinent History Cardiac: Angioplasty, Cardiac Catheterization, Cardiac Stent, Pacemaker Respiratory: No Pertinent History Gastrointestinal: Appendectomy Genitourinary: No Pertinent History Musculoskeletal: Orthopedic Surgery Male Surgical History: No Pertinent History Other Surgical History: Fractured pelvis with surgery in 1972. 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 - Social History Smoking Status: Former smoker How long have you smoked: 40 Exposure to second hand smoke: No Drug Use: none Patient Lives Alone: No - Nursing Vital Signs Nursing Vital Signs: Initial Vital Signs Temperature 98.4 F 06/15/23 11:01 Pulse Rate 70 06/15/23 11:01 Respiratory Rate 22 06/15/23 11:01 Blood Pressure 146/68 06/15/23 11:01 O2 Sat by Pulse Oximetry 96 06/15/23 11:01 Pain Scale Pain Intensity 0 - Physical Exam SpO2 Interpretation: normal SpO2: 96 Comments: 06/15/23 12:02 Review of Systems Constitutional: Negative for fever. HENT: Negative for congestion. Respiratory: Negative for shortness of breath. Cardiovascular: Negative for chest pain. Gastrointestinal: Negative for abdominal pain. Genitourinary: Negative for dysuria. Musculoskeletal: Negative for back pain. Skin: Negative for rash. Neurological: Negative for headaches. Psychiatric/Behavioral: Negative for behavioral problems. All other systems reviewed and are negative. Physical Exam Vitals signs and nursing note reviewed. Constitutional: Appearance: Patient is well-developed. HENT: Head: Normocephalic and atraumatic. Eyes: Conjunctiva/sclera: Conjunctivae normal. Neck: Musculoskeletal: Normal range of motion. Trachea: No tracheal deviation. Cardiovascular: Rate and Rhythm: Normal rate. Pulmonary: Effort: Pulmonary effort is normal. No respiratory distress. Abdominal: Palpations: Abdomen is soft. Musculoskeletal: General: No deformity. Skin: General: 2.5 cm x 2.5 cm area of left upper thigh skin graft. It is oozing, blood clot surrounding. Patient has blood through a 4 x 4. No surrounding signs of infection, redness, erythema. No copious bleeding. Neurological/ Psychiatric: Mental Status: Mental status, behavior, interaction with environment is appropriate for patient's age and condition - Course Nursing assessment & vital signs reviewed: Yes - Progress Progress Note: 06/15/23 12:03 We did discuss over the phone with Dr. Vazquez Loya. He did recommend that we clean and dress the left thigh wound. We did place a Vaseline gauze, 4 x 4, Tegaderm over this. Patient was observed in the ER and had no further bleeding. Patient will need his wound reexamined tomorrow with Dr. Vazquez Loya. She will call their office first thing in the morning or this afternoon to make an appointment. Discussed with : Jerald, Other - Departure Departure Disposition: Home Clinical Impression: Post-operative complication, Bleeding from wound Condition: Stable Critical Care Time: No Referrals: ALONDRA HERNANDEZ [Primary Care Provider] - Follow up/PCP as directed Instructions: Wound Care (DC) Additional Instructions: Call Dr. Loya's office and be seen for wound recheck in 2-3 days
[2023-06-15 11:44] VITALS: BP 117/54; PULSE 62
== END 2023-06-15 11:53 | disposition home or self-care (01) ==
LOC: ED 10:56
DX: L76.21 Postprocedural hemorrhage of skin and subcutaneous tissue following a dermatologic procedure (principal); I13.0 Hypertensive heart and chronic kidney disease with heart failure and stage 1 through stage 4 chronic kidney disease, or unspecified chronic kidney disease; I50.9 Heart failure, unspecified; E11.22 Type 2 diabetes mellitus with diabetic chronic kidney disease; N18.4 Chronic kidney disease, stage 4 (severe); Z79.84 Long term (current) use of oral hypoglycemic drugs; Z79.899 Other long term (current) drug therapy
CPT/HCPCS: 99282

== ENCOUNTER 2023-10-14 03:38 | Emergency (ER) | payer MEDICARE ==
--- NOTE | 2023-10-14 04:10 | ERPHSYRPT ---
- History of Present Illness Time Seen by Provider: 10/14/23 04:10 Source: patient, family Exam Limitations: no limitations Physician History: pt just began dialysis and had been going well. He takes elliquis . He noted some bleeding in his cath site dressing tonight and came in because the dialysis number did not answer his calls and the home health nurse said they could not help for this condition. No other symptoms or concerns at this time. Discussed risks/benefits of testing with pt and family including CT and CBC and they wish to proceed, these are ordered. results discussed with pt and family. Timing/Duration: today Severity: moderate (no pain) Associated Symptoms: denies symptoms Allergies/Adverse Reactions: Penicillins Allergy (Verified 10/14/23 04:24) Hives Home Medications: Alendronate Sodium 70 mg [Fosamax 70 MG] 35 mg PO WEEKLY 09/23/19 [History] Atorvastatin Calcium [Lipitor] 20 mg PO HS 09/23/19 [History] Bumetanide [Bumex] 2 mg PO BID 09/23/19 [History] Digoxin 0.125 mg Tablet [Lanoxin 0.125MG TABLET] 0.125 mg PO DAILY 09/23/19 [History] Famotidine [Pepcid] 20 mg PO HS 09/23/19 [History] Finasteride 5 mg [Proscar 5 MG] 5 mg PO DAILY 09/23/19 [History] Glipizide [Glipizide ER] 5 mg PO DAILY 09/23/19 [History] Metoprolol Tartrate 12.5 mg PO DAILY 09/23/19 [History] Potassium Chloride 10 meq PO BID 09/23/19 [History] Tamsulosin HCl 0.4 mg [Flomax 0.4 MG] 0.4 mg PO DAILY 09/23/19 [History] Allopurinol 100 mg [Zyloprim 100 mg] 100 mg PO DAILY 05/03/21 [History] Levothyroxine Sodium 50 mcg PO DAILY 05/03/21 [History] Albuterol Sulfate [Proair Respiclick] 90 mcg IH DAILY PRN PRN 07/20/22 [History] Empagliflozin [Jardiance] 10 mg PO DAILY 07/20/22 [History] Iron,Carb/Vit C/Vit B12/Folic [Iron 100 Plus Tablet] 1 each PO DAILY 07/20/22 [History] Nitroglycerin 0.4 mg/Hr [Nitro-Dur 0.4 MG/HR] 0.4 mg TOP BID 07/20/22 [History] Fluticasone/Umeclidin/Vilanter [Trelegy Ellipta 200-62.5-25] 1 each IH DAILY 06/14/23 [History] Pantoprazole Sodium [Protonix] 40 mg PO DAILY 06/14/23 [History] Hx Tetanus, Diphtheria Vaccination/Date Given: Yes Hx Influenza Vaccination/Date Given: Yes Hx Pneumococcal Vaccination/Date Given: Yes Travel Risk - Emerging Infectious Disease Are you exhibiting symptoms associated with any current EIDs: No - Review of Systems Constitutional: No Fever, No Chills Eyes: No Symptoms Ears, Nose, & Throat: No Symptoms Respiratory: No Cough, No Dyspnea Cardiac: No Chest Pain, No Edema, No Syncope Abdominal/Gastrointestinal: No Abdominal Pain, No Nausea, No Vomiting, No Diarrhea Genitourinary Symptoms: No Dysuria Musculoskeletal: No Back Pain, No Neck Pain Skin: No Rash Neurological: No Dizziness, No Focal Weakness, No Sensory Changes Psychological: No Symptoms Endocrine: No Symptoms Hematologic/Lymphatic: No Symptoms Immunological/Allergic: No Symptoms All Other Systems: Reviewed and Negative - Past Medical History Pertinent Past Medical History: Yes Neurological History: Stroke ENT History: No Pertinent History Cardiac History: Arrhythmia, Congestive Heart Failure, Hypertension Respiratory History: CHF, COPD, Other Endocrine Medical History: Diabetes Type II Musculoskeletal History: Arthritis GI Medical History: GERD, Ulcer History: Renal Disease Psycho-Social History: No Pertinent History Male Reproductive Disorders: Prostate Problems Other Medical History: stage 4 kidney disease, afib - Past Surgical History Past Surgical History: Yes Neuro Surgical History: No Pertinent History Cardiac: Angioplasty, Cardiac Catheterization, Cardiac Stent, Pacemaker Respiratory: No Pertinent History Gastrointestinal: Appendectomy Genitourinary: No Pertinent History Musculoskeletal: Orthopedic Surgery Male Surgical History: No Pertinent History Other Surgical History: Fractured pelvis with surgery in 1972. 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 - Social History Smoking Status: Former smoker How long have you smoked: 40 Exposure to second hand smoke: No Drug Use: none Patient Lives Alone: No - Social Determinants of Health Will the patient participate in the screening: Yes Do you worry about a steady place to live?: No In the past 12 months,have you had to go without utilities?: No Transportation Issues: No Has anyone in your support network made you feel unsafe?: No Have you or anyone in your house had to go without enough: No - Nursing Vital Signs Nursing Vital Signs: Initial Vital Signs Temperature 98.9 F 10/14/23 03:56 Pulse Rate 82 10/14/23 03:56 Respiratory Rate 20 10/14/23 03:56 Blood Pressure 119/49 10/14/23 03:56 O2 Sat by Pulse Oximetry 94 L 10/14/23 03:56 Pain Scale Pain Intensity 0 - Physical Exam General Appearance: no apparent distress, alert Eye Exam: PERRL/EOMI, eyes nml inspection Ears, Nose, Throat Exam: normal ENT inspection, TMs normal, pharynx normal, moist mucous membranes Neck Exam: normal inspection, non-tender, supple, full range of motion Respiratory Exam: normal breath sounds, lungs clear, No respiratory distress Cardiovascular Exam: regular rate/rhythm, normal heart sounds, normal peripheral pulses Gastrointestinal/Abdomen Exam: soft, normal bowel sounds, No tenderness, No mass Rectal Exam: deferred Back Exam: normal inspection, normal range of motion, No CVA tenderness, No vert ebral tenderness Extremity Exam: normal inspection, normal range of motion, pelvis stable Neurologic Exam: alert, oriented x 3, cooperative, normal mood/affect, nml cerebellar function, nml station & gait, sensation nml, No motor deficits Skin Exam: normal color, warm, dry, other (catheter site has no active bleeding and no hematoma seen or palpable externally. ), No rash Lymphatic Exam: No adenopathy - Course Nursing assessment & vital signs reviewed: Yes Ordered Tests: Active Orders 24 hr Category Date Time Status CHEST WITHOUT CONTRAST [CT] Stat Exams 10/14/23 04:10 Completed CBC W DIFF Stat Lab 10/14/23 04:47 Completed Lab/Rad Data: Laboratory Result Diagrams 10/14/23 04:47 Laboratory Results 10/14/23 Range/Units 04:47 WBC 3.6 L (4.23-9.07) x10^3/uL RBC 2.99 L (4.63-6.08) x10^6/uL Hgb 8.8 L (13.7-17.5) g/dL Hct 27.8 L (40.1-51.0) % MCV 93.0 H (79.0-92.2) fL MCH 29.4 (25.7-32.2) pg MCHC 31.7 L (32.3-36.5) g/dL RDW 15.9 H (11.6-14.4) % Plt Count 88 L (163-337) x10^3/uL MPV 10.1 (9.4-12.4) fL Gran % 66.6 (34.0-67.9) % Immature Gran % (Auto) 0.5 H (0.001-0.429) % Nucleat RBC Rel Count 0.0 (0.00-0.2) % Eos # (Auto) 0.08 (0.04-0.54) x10^3/uL Immature Gran # (Auto) 0.02 (0.001-0.031) x10^3u/L Absolute Lymphs (auto) 0.50 L (1.32-3.57) x10^3/uL Absolute Monos (auto) 0.58 (0.30-0.82) x10^3/uL Absolute Nucleated RBC 0.00 (0.00-0.012) x10^3u/L Lymphocytes % 13.7 L (21.8-53.1) % Monocytes % 15.9 H (5.3-12.2) % Eosinophils % 2.2 (0.8-7.0) % Basophils % 1.1 (0.2-1.2) % Absolute Granulocytes 2.42 (1.78-5.38) x10^3/uL Basophils # 0.04 (0.01-0.08) x10^3/uL - Progress Progress: improved, re-examined Progress Note: 10/14/23 06:06 no further bleeding noted and no drainage. I advised pt and family that the elliquis may need to be changed or adjusted dose if this recurs. Counseled pt/family regarding: lab results, diagnosis, need for follow-up, rad results Medical Desision Making - Independent Historian Additional History obtained from: Family - Discussion of managment Reviewed:: Test results, Need for additional workup Agreed on:: Treatment plan, need for follow-up - Diagnostic Testing Diagnostic test were ordered, analyzed, and reviewed by me: Yes Radiological Interpretation: Teleradiologist Report - Risk of complications The pt has a mod risk of morbidity or mortality based on: Need for prescription drug management The pt has a high risk of morbidity or mortality based on: Decision regarding hospitilization or escalation of hosp level of care - Departure Departure Disposition: Home Clinical Impression: dialysis cath site bleeding- transient , low HGB Condition: Good Critical Care Time: No Referrals: ALONDRA HERNANDEZ [Primary Care Provider] - Follow up/PCP as directed Additional Instructions: Keep an eye on the catheter bandage for further leakage. See your Dr, tomorrow and have the hemoglobin rechecked which was low at 8.8 but may be your new normal with your kidney condition and dialysis. THere was some fluid on the CT but also consistent with your chronic CHF. return meantime if any symptoms or concerns or if it recurs. THe elliquis may need to be adjusted by coordination between your Dr.s , but especially if this recurs.
[2023-10-14 04:24] VITALS: TEMP 98.9
[2023-10-14 04:52] LABS: Absolute Neutrophil Ct (ANC) 2.42 x10^3/uL (1.78-5.38); BASOPHIL % 1.1 % (0.2-1.2); Basophil (Absolute #) 0.04 x10^3/uL (0.01-0.08); Eosinophil % 2.2 % (0.8-7.0); Eosinophil (Absolute #) 0.08 x10^3/uL (0.04-0.54); Hematocrit 27.8 % (40.1-51.0); Hemoglobin 8.8 g/dL (13.7-17.5); IMMATURE GRAN # 0.02 x10^3u/L (0.001-0.031); IMMATURE GRAN % 0.5 % (0.001-0.429); Lymphocytes % 13.7 % (21.8-53.1); Mean Corpuscular Hemoglobin 29.4 pg (25.7-32.2); Mean Corpuscular Hgb Concent. 31.7 g/dL (32.3-36.5); Mean Platelet Volume 10.1 fL (9.4-12.4); Monocyte (Absolute #) 0.58 x10^3/uL (0.30-0.82); Monocytes % 15.9 % (5.3-12.2); Neutrophil % 66.6 % (34.0-67.9); Platelet Count 88 x10^3/uL (163-337); Red Blood Count 2.99 x10^6/uL (4.63-6.08); Red Cell Distribution Width 15.9 % (11.6-14.4); White Blood Count 3.6 x10^3/uL (4.23-9.07)
[2023-10-14 05:38] VITALS: PULSE 74; RESP 18
[2023-10-14 05:41] VITALS: BP 121/55; O2SAT 96
--- NOTE | 2023-10-14 05:46 | XRAY ---
CLINICAL HISTORY: bleeding from dialysis site - on bl COMPARISON: None. TECHNIQUE: Contiguous axial CT images of the chest were acquired without contrast. Coronal and sagittal reconstructions were obtained. One of the following dose reduction techniques were utilized for this exam: Automated exposure control, adjustment of the mA and/or kV according to patient size, use of iterative reconstruction. CTDI: 11.62 mGy, DLP: 426.41 mGy-cm. FINDINGS: Evidence of right-sided central line and cardiac pacemaker leads is noted. Bilateral pleural effusion, more prominent on the right side. Emphysematous changes with emphysematous bullae. Peripheral calcified nodule seen at the left lower lung lobe, measuring about 4 mm. The scanned pulmonary parenchyma shows no definite consolidative lesions. Cardiomegaly. Cardiac pacemaker leads seen. Prominent bronchovascular markings and thickened interlobular septa. Atherosclerotic calcification of the aorta and coronaries. No pathologically enlarged mediastinal, hilar or axillary lymph node identified. Thoracic vertebral spondylitic changes. Scanned upper abdomen is unremarkable. IMPRESSION: 1. Bilateral pleural effusion, more prominent on the right side. 2. Emphysematous changes with emphysematous bullae. 3. Peripheral calcified nodule seen at the left lower lung lobe, measuring about 4 mm. 4. Cardiomegaly. Electronically Signed by: Alan Andersen MD. (10/14/2023 05:41:49 EDT)
== END 2023-10-14 06:31 | disposition home or self-care (01) ==
LOC: ED 03:38
DX: T82.838A Hemorrhage due to vascular prosthetic devices, implants and grafts, initial encounter (principal); D64.9 Anemia, unspecified; I13.2 Hypertensive heart and chronic kidney disease with heart failure and with stage 5 chronic kidney disease, or end stage renal disease; E11.22 Type 2 diabetes mellitus with diabetic chronic kidney disease; I50.9 Heart failure, unspecified; N18.6 End stage renal disease; Z99.2 Dependence on renal dialysis; Z79.01 Long term (current) use of anticoagulants; Z79.84 Long term (current) use of oral hypoglycemic drugs; Z79.899 Other long term (current) drug therapy
CPT/HCPCS: 36415; 71250; 85025; 99283